=== PATIENT | female | born 1985 | race Caucasian/White ===

== ENCOUNTER 2018-03-22 09:07 | Emergency (ER) | payer BC, SELFPAY ==
[2018-03-22 09:15] VITALS: BP 127/79; PULSE 76; RESP 18; TEMP 36.3; O2SAT 99
--- NOTE | 2018-03-22 09:16 | W.ED.GENAD ---
Discharge Plan Disposition Patient Disposition: HOME Condition: Fair Discharge Details Chief Complaint: Orthopedic Clinical Impression: Hematoma, Contusion of knee, left Primary Care Provider: Erica Golden ED Provider: Junie Luna Home Meds and New Rx's Prescriptions: New ibuprofen 600 mg tablet 600 mg PO QID PRN (Reason: pain) Qty: 30 RF: 0 Continued vit no.[id number] [ Vitamin] 1 EACH tablet 1 tab PO DAILY RF: 0 Discharge Instructions Instructions: Contusion in Adults (ED), Hematoma (ED) Additional Instructions: Encourage rest, ice/heat, elevation, compression with dequan wrap. Tylenol and/or Ibuprofen as needed for discomfort, Ibuprofen will help with swelling. catering coordinator will reach out to you to discuss follow up with primary care. Monitor for redness, warmth, discharge, fevers/chills. If these or other new/worsening symptoms arise please seek care urgently once again. Referrals: Erica Golden PA [Primary Care Provider] - Discharge Data Discharge Date/Time-TO BE ENTERED AT DEPARTURE: 03/22/18 10:14 Medical Decision Making Patient is a 32-year-old female presents today, accompanied by her , with chief complaint of left knee pain. Reports that approximately 9 days ago, while snowboarding, she fell directly onto the anterior aspect of her knee. Reports that since then she has had swelling, ecchymosis and pain anteriorly. Reports the pain is maximal when she is kneeling on the extremity. States this is not changed her gait at all. Has been taking Tylenol as needed for discomfort. Patient is currently breast-feeding. Denies any twisting injury or other injury at the time of the incident. Does not feel that the knee has been giving out. On exam, patient appears comfortable. She does have large amount of ecchymosis generally about the knee, maximal medially. She does have an area of focal swelling, consistent with a hematoma, over the medial aspect of the knee approximately 5 cm in diameter. It is not warm or fluctuant. No evidence of infection. No erythema. Full range of motion although maximal flexion does increase tightness over the swollen area. She does have some discomfort with palpation about the patella. She is able to straight leg raise well. Ligamentously intact with no joint line tenderness. Plan to obtain imaging to look at patella further. Otherwise, plan to treat for hematoma and soft tissue swelling. XR reviewed by myself, no acute abnormality noted. Radiologist agrees, no acute abnormality. Discussed findings with the patient. Advised that this is most consistent with hematoma and contusion. encouraged rest, ice, elevation. Tylenol and/or Motrin as needed for discomfort. Dequan wrap applied to help with compression and swelling. Advised heat may also be of benefit. She was questioning snowboarding tomorrow, advised against this but advised that typical activities around the house were encouraged. We discussed new/worsneing symptoms and when to seek care urgently once again, in particular, advised on signs of infection. She does not have a PCP, I have asked our career and technology education teacher to help facilitate follow up in the next 2 weeks. All of her questions and concerns were addressed, she isin agreement iwth this plan. HPI General Mode of arrival: ambulatory. Date/Time Provider Initiated Documentation: 03/22/18 09:16. Limitations to Documentation: no limitations. Information obtained by: patient and family (accompanied by ). History of Present Illness 32 year old F presents to the emergency department with the chief complaint of anterior left knee pain, with intensity rated at 1. Quality is described as aching, and is localized to the left and lower extremity. Patient reports no radiation. Patient started experiencing this week(s) (1+) and it has been intermittent. Immobilization improves symptom(s), Movement worsens symptoms (maximal with pressure applied to the knee) . Patient notes no other symptoms.. Patient did receive the following treatments prior to arrival, other (Tylenol) Related Data Home Medications Medication Instructions Recorded Confirmed vit no.[id number] 1 tab PO DAILY 11/29/14 [ Vitamin] ibuprofen 600 mg PO QID PRN #30 tab 03/22/18 Previous Rx's Medication Instructions Recorded ibuprofen 600 mg PO QID PRN #30 tab 03/22/18 Allergies Allergy/AdvReac Type Severity Reaction Status Date / Time amoxicillin Allergy Intermediate Unverified 11/29/14 11:19 Penicillins Allergy Intermediate rash Unverified 11/29/14 11:19 Review of Systems Constitutional Reports as per HPI, Denies chills, Denies fever(s), Denies headache(s) and Denies weakness ENT Denies headache(s) Cardiovascular Reports as per HPI Respiratory Reports as per HPI and Denies cough Musculoskeletal Reports as per HPI and Denies tingling Integumentary/Breasts Reports as per HPI, Denies rash and Reports unusual bruising (notes large amount of bruising that has been spreading over left knee) Neurologic Denies headache(s), Denies tingling and Denies weakness [facility] Social History Smoking/Tobacco Use Status: Never Exam Const General: cooperative, healthy appearing, comfortable, no acute distress, well developed and well groomed Nutritional Appearance: average body habitus and well nourished Orientation: alert and awake Resp Effort & Inspection: normal respiratory effort, able to speak in complete sentences and no respiratory distress Cardio Rate: regular rate Rhythm: regular rhythm Skin General skin exam: ecchymosis (left knee, fairly diffuse, maximal medially) Neuro General: alert and awake Cognition: normal cognition Speech: speech normal Gait: normal gait Motor: muscle tone normal throughout Sensory Exam: no sensory deficits noted Extrem Left lower extremity: full ROM, normal capillary refill, hip/thigh Details: normal to inspection and normal ROM; no tenderness and knee Details: tenderness (medially over area of swelling), swelling (soft tissue anteriomedially), normal ROM, knee ligament exam normal (normal) Details: anterior drawer test normal, posterior drawer test normal, valgus stress test normal and varus stress test normal; pain with axial loading, Juni's Test Details: negative medially and laterally and ecchymosis; inspection abnormal (ecchymosis as above with focal area of swelling medially consistent with hematoma), no crepitus, no deformity and no unusual warmth Psych Appearance: grossly normal and well kempt Mental Status: mental status grossly normal Speech and Movement: speech and movement normal
--- NOTE | 2018-03-22 09:25 | DI.RAD_ITS ---
SYMPTOMS/DIAGNOSIS: ANTERIOR PAIN LEFT KNEE: No fracture or joint effusion is seen. The joint spaces are well maintained. IMPRESSION: Negative left knee.
--- NOTE | 2018-03-22 09:31 | ED.GENADUL_ITS ---
Discharge Plan Disposition Patient Disposition: HOME Condition: Fair Discharge Details Chief Complaint: Orthopedic Clinical Impression: Hematoma, Contusion of knee, left Primary Care Provider: Erica Golden ED Provider: Junie Luna Home Meds and New Rx's Prescriptions: New ibuprofen 600 mg tablet 600 mg PO QID PRN (Reason: pain) Qty: 30 RF: 0 Continued vit no.[id number] [ Vitamin] 1 EACH tablet 1 tab PO DAILY RF: 0 Discharge Instructions Instructions: Contusion in Adults (ED), Hematoma (ED) Additional Instructions: Encourage rest, ice/heat, elevation, compression with dequan wrap. Tylenol and/or Ibuprofen as needed for discomfort, Ibuprofen will help with swelling. nursing staffing coordinator will reach out to you to discuss follow up with primary care. Monitor for redness, warmth, discharge, fevers/chills. If these or other new/worsening symptoms arise please seek care urgently once again. Referrals: Erica Golden PA [Primary Care Provider] - Discharge Data Discharge Date/Time-TO BE ENTERED AT DEPARTURE: 03/22/18 10:14 Medical Decision Making Patient is a 32-year-old female presents today, accompanied by her , with chief complaint of left knee pain. Reports that approximately 9 days ago, while snowboarding, she fell directly onto the anterior aspect of her knee. Reports that since then she has had swelling, ecchymosis and pain anteriorly. Reports the pain is maximal when she is kneeling on the extremity. States this is not changed her gait at all. Has been taking Tylenol as needed for discomfort. Patient is currently breast-feeding. Denies any twisting injury or other injury at the time of the incident. Does not feel that the knee has been giving out. On exam, patient appears comfortable. She does have large amount of ecchymosis generally about the knee, maximal medially. She does have an area of focal swelling, consistent with a hematoma, over the medial aspect of the knee approximately 5 cm in diameter. It is not warm or fluctuant. No evidence of infection. No erythema. Full range of motion although maximal flexion does increase tightness over the swollen area. She does have some discomfort with palpation about the patella. She is able to straight leg raise well. Ligamentously intact with no joint line tenderness. Plan to obtain imaging to look at patella further. Otherwise, plan to treat for hematoma and soft tissue swelling. XR reviewed by myself, no acute abnormality noted. Radiologist agrees, no acute abnormality. Discussed findings with the patient. Advised that this is most consistent with hematoma and contusion. encouraged rest, ice, elevation. Tylenol and/or Motrin as needed for discomfort. Dequan wrap applied to help with compression and swelling. Advised heat may also be of benefit. She was questioning snowboarding tomorrow, advised against this but advised that typical activities around the house were encouraged. We discussed new/worsneing symptoms and when to seek care urgently once again, in particular, advised on signs of infection. She does not have a PCP, I have asked our rn urgent care to help facilitate follow up in the next 2 weeks. All of her questions and concerns were addressed, she isin agreement iwth this plan. HPI General Mode of arrival: ambulatory . Date/Time Provider Initiated Documentation: 03/22/18 09:16 . Limitations to Documentation: no limitations . Information obtained by: patient and family (accompanied by ) . History of Present Illness 32 year old F presents to the emergency department with the chief complaint of anterior left knee pain, with intensity rated at 1. Quality is described as aching, and is localized to the left and lower extremity. Patient reports no radiation. Patient started experiencing this week(s) (1+) and it has been intermittent. Immobilization improves symptom(s), Movement worsens symptoms (maximal with pressure applied to the knee) . Patient notes no other symptoms.. Patient did receive the following treatments prior to arrival, other (Tylenol) Related Data Home Medications Medication Instructions Recorded Confirmed vit no.[id number] 1 tab PO DAILY 11/29/14 [ Vitamin] ibuprofen 600 mg PO QID PRN #30 tab 03/22/18 Previous Rx's Medication Instructions Recorded ibuprofen 600 mg PO QID PRN #30 tab 03/22/18 Allergies Allergy/AdvReac Type Severity Reaction Status Date / Time amoxicillin Allergy Intermediate Unverified 11/29/14 11:19 Penicillins Allergy Intermediate rash Unverified 11/29/14 11:19 Review of Systems Constitutional Reports as per HPI, Denies chills, Denies fever(s), Denies headache(s) and Denies weakness ENT Denies headache(s) Cardiovascular Reports as per HPI Respiratory Reports as per HPI and Denies cough Musculoskeletal Reports as per HPI and Denies tingling Integumentary/Breasts Reports as per HPI, Denies rash and Reports unusual bruising (notes large amount of bruising that has been spreading over left knee) Neurologic Denies headache(s), Denies tingling and Denies weakness [facility] Social History Smoking/Tobacco Use Status: Never Exam Const General: cooperative, healthy appearing, comfortable, no acute distress, well developed and well groomed Nutritional Appearance: average body habitus and well nourished Orientation: alert and awake Resp Effort & Inspection: normal respiratory effort, able to speak in complete sentences and no respiratory distress Cardio Rate: regular rate Rhythm: regular rhythm Skin General skin exam: ecchymosis (left knee, fairly diffuse, maximal medially) Neuro General: alert and awake Cognition: normal cognition Speech: speech normal Gait: normal gait Motor: muscle tone normal throughout Sensory Exam: no sensory deficits noted Extrem Left lower extremity: full ROM, normal capillary refill, hip/thigh Details: normal to inspection and normal ROM; no tenderness and knee Details: tenderness (medially over area of swelling), swelling (soft tissue anteriomedially), normal ROM, knee ligament exam normal (normal) Details: anterior drawer test normal, posterior drawer test normal, valgus stress test normal and varus stress test normal; pain with axial loading, Juni's Test Details: negative medially and laterally and ecchymosis; inspection abnormal (ecchymosis as above with focal area of swelling medially consistent with hematoma), no crepitus, no deformity and no unusual warmth Psych Appearance: grossly normal and well kempt Mental Status: mental status grossly normal Speech and Movement: speech and movement normal
--- NOTE | 2018-03-22 10:46 | CMPROGNOTE_ITS ---
Care Management Progress Note 03/22-Junie MERAZ requested assistance with a PCP (Erica Golden) in two weeks for hematoma of left knee. Referral faxed to [facility] this am.
== END 2018-03-22 10:14 | disposition home or self-care (01) ==
PROVIDERS: Emergency Provider Physician Assistant; PCP Physician Assistant
DX: S80.02XA Contusion of left knee, initial encounter (principal); V00.311A Fall from snowboard, initial encounter
CPT/HCPCS: 99283; 73564; 99282

== ENCOUNTER 2019-01-18 08:16 | Outpatient (CLI) | payer MEDICAID, SELFPAY ==
--- NOTE | 2019-01-18 12:00 | DI.US_ITS ---
EXAM: US PELVIS TRANSVAGINAL CLINICAL HISTORY: MENORRHAGIA W/ IRREGULAR CYCLE N92.1 TECHNIQUE: Ultrasound performed using standard protocol. COMPARISON: ABDOMEN ULTRASOUND (P) from 02/12/2012 FINDINGS: The uterus measures 9.2 cm long by 5.1 cm AP x 6.9 cm transverse. The endometrial stripe is within n ormal limits in this premenopausal patient at 1.2 cm. No uterine mass is seen. Incidental note is made of cervical nabothian cysts. The right ovary measures 3.3 x 1.6 x 1.5 cm. There is normal blood flow. No evidence of torsion is present. Small follicular cysts are present. The left ovary measures 3.5 x 2.3 x 2.2 cm. There is normal blood flow. No evidence of torsion is p resent. There are follicular cysts present. There is a 2.3 x 1.9 x 2.2 cm hemorrhagic cyst on the l eft ovary. No free pelvic fluid is identified. There is prominence of the right renal pelvis. This may represent an extrarenal pelvis versus mild h ydronephrosis. IMPRESSION: 1. 2.3 cm hemorrhagic left ovarian cyst. 2. Mild prominence of the right renal pelvis. This may represent an extrarenal pelvis or mild hydro nephrosis. Please correlate clinically.
== END 2019-01-18 08:36 ==
PROVIDERS: PCP Nurse Practitioner Family; Visit Provider Obstetrics & Gynecology
DX: N92.1 Excessive and frequent menstruation with irregular cycle (principal); N83.12 Corpus luteum cyst of left ovary; N83.01 Follicular cyst of right ovary; N83.02 Follicular cyst of left ovary
CPT/HCPCS: 76830; 76856

== ENCOUNTER 2019-04-08 20:26 | Emergency (ER) | payer MEDICAID, SELFPAY ==
[2019-04-08 20:31] VITALS: BP 122/74; PULSE 67; TEMP 36.5; O2SAT 99
--- NOTE | 2019-04-08 20:40 | W.ED.GENAD ---
Discharge Plan Disposition Patient Disposition: HOME Condition: Good Discharge Details Chief Complaint: Orthopedic Clinical Impression: Contusion of knee, left Primary Care Provider: Malika Gonzalez ED Provider: Cj Abbasi Home Meds and New Rx's Prescriptions: New lidocaine [Lidoderm] 1 PATCH patch 1 patch Topical Q24H Qty: 4 RF: 0 Continued ibuprofen 600 mg tablet 600 mg PO QID PRN (Reason: pain) Qty: 30 RF: 0 citalopram [Celexa] 40 mg Tablet 40 mg PO DAILY RF: 0 Discharge Instructions Instructions: Contusion in Adults (ED) Additional Instructions: At this time your x-ray shows no evidence of fracture in your knee, there is a notable amount of swelling. As we discussed please use the Lidoderm patches, 1000 mg of Tylenol every 6 hours and 800 mg of ibuprofen every 6 hours to help with the pain. Please use an Dequan wrap and stay nonweightbearing with your crutches for the next week as your symptoms improve. You can then gradually transition to using your foot and bearing weight as tolerated. If your symptoms do not improve, and you notice continued swelling you may require repeat visit, assessment and potential drainage at that time. If you notice any worsening of your symptoms, or any new symptoms such as redness, warmth at the site, worsening swelling or pain, change in color in your foot past the site of injury in your knee, vomiting, diarrhea, fever, chills, shortness of breath, chest pain, numbness, weakness, or fainting , please return immediately to the emergency department for reevaluation. Please follow up with your primary care provider as soon as possible for reassessment and reevaluation. As always, it was a pleasure participating in your medical care today. Referrals: Malika Gonzalez, F[employer]T [employer]IPPING MACHINE TENDER [Primary Care Provider] - Medical Decision Making This is a pleasant 33-year-old female who presents for left knee pain. Earlier today she was snowboarding and fell and hit her left knee on the ice. She is able to walk and continue to snowboard for the rest of the day however she has had gradual increasing swelling over the left knee with effusion and worsening of pain in conjunction with this. She is only taken Tylenol for the pain. Exam demonstrates notable effusion on the left knee, mild bruising. Review of the patient's prior chart record 1 year ago, as well as the patient's historical references seems to be exactly how her last effusion was. We will get an x-ray to evaluate for acute fracture. We will treat with Lidoderm patch, NSAIDs and IM morphine. At this time there is no clinical evidence of significant infection or neurovascular compromise whatsoever. Bedside ultrasound shows only minimal deep effusion, and it appears to be more diffuse through the soft tissues without large fluid pocket. I do not feel that at this time she is a candidate for effusion drainage. 9:18 PM X-ray results have returned per virtual radiology there is moderate to severe prepatellar subcutaneous inflammatory changes concerning for prepatellar bursitis versus edema. With the clinical context of the injury, I suspect her signs and symptoms more closely reflect posttraumatic edema and not bursitis at this point. However her symptoms may certainly transition into a prepatellar bursitis with time. At this time there is no clinical indication or actual availability to do a bursa or joint drainage. As such we will hold off at this time. Recommend continued NSAIDs, ice, wrap and elevation. Will give crutches for home use. Discussed red flags for which to return, and also discussed with the patient that if her symptoms continue to worsen she may require drainage later when there is a larger fluid collection. I have extensively reviewed the treatment plan and discharge instructions with the patient and their family. I have addressed all patient concerns at this time. The patient and family was made aware of what symptoms to monitor for that would warrant a return to the emergency department. Discussed the plan with the patient and family, they demonstrate verbal understanding and agreement with our assessment and plan at this time. FINDINGS: Bones/joints: No suspicious osseous lytic or blastic lesion. No acute fracture or dislocation. No significant joint effusion. Soft tissues: There is pronounced thickening of the prepatellar subcutaneous soft tissues with curvilinear opacity suspicious for moderate to severe soft tissue edema versus fluid within the prepatellar bursa. IMPRESSION: 1. Moderate to severe prepatellar subcutaneous inflammatory changes as discussed. Posttraumatic edema versus prepatellar bursitis. Correlate clinically. 2. No acute fracture or dislocation. Thank you for allowing us to participate in the care of your patient. Dictated and Authenticated by: Morgan Hauser MD 04/08/2019 9:15 PM Eastern Time ([place] & [place]) HPI General Date/Time Provider Initiated Documentation: 04/08/19 20:28. HPI Narrative: This is a pleasant 33-year-old female with no significant past medical history except for hysterectomy previous contusion and effusion to her left knee 1 year ago, who presents today for evaluation of left knee pain. The patient was snowboarding earlier today when she fell and landed on her left knee. It was a mild injury and she continued to walk throughout the day without significant difficulty. However throughout the day as she continued to walk on it the swelling worsened and her pain worsened. She did take 1 g of Tylenol 6 hours ago, but has taken nothing else. She denies any other complaints at this time. Aside for the pain in her knee she denies any proximal or distal pain. She denies any associated numbness tingling or weakness. She describes the pain is aching and burning in her left knee. No other modifying factors. No other complaints at this time. Related Data Home Medications Medication Instructions Recorded Confirmed ibuprofen 600 mg PO QID PRN #30 tab 03/22/18 04/08/19 citalopram [Celexa] 40 mg PO DAILY 04/08/19 04/08/19 lidocaine [Lidoderm] 1 patch TOPICAL Q24H #4 patch 04/08/19 Previous Rx's Medication Instructions Recorded ibuprofen 600 mg PO QID PRN #30 tab 03/22/18 lidocaine [Lidoderm] 1 patch TOPICAL Q24H #4 patch 04/08/19 Allergies Allergy/AdvReac Type Severity Reaction Status Date / Time amoxicillin Allergy Intermediate Unverified 04/08/19 20:38 Penicillins Allergy Intermediate rash Unverified 04/08/19 20:38 General Stated Complaint: Orthopedic BRO: 4 Review of Systems All systems reviewed & are unremarkable except as noted in HPI and below PFSH Medical History (Updated 04/08/19 @ 21:20 by Cj Abbasi DO) Depression (Chronic) Surgical History (Updated 04/08/19 @ 20:40 by Kristy Castro) History of hysterectomy (Chronic) Social History Smoking/Tobacco Use Status: Never Alcohol Intake: current Alcohol Intake frequency: a few times a month Drug use: Never Substance use type: does not use Do you feel safe in your relationship?: Yes Exam Narrative Exam Narrative: 1.Const: Well-nourished, Well-developed, appearing stated age 2.Eyes: PERRL, no conjunctival injection, and symmetrical lids. 3.ENT: Atraumatic external nose and ears. Moist MM. Neck: Symmetric, trachea midline, No thyromegaly. 4.CVS: +S1/S2, No murmurs or gallops. Peripheral pulses 2+ and equal in all extremities. Brisk capillary refill in all extremities. 5.RESP: Unlabored respiratory effort. Clear to auscultation bilaterally. No wheezes rales or rhonchi 6.GI: Soft, Nontender/Nondistended, No hepatosplenomegaly. No guarding or rebound. 7.MSK: Normocephalic, No cyanosis or clubbing. Left knee: Left knee is notably swollen, significant effusion around the knee with bruising over the anterior medial aspect just medial to the patella. No significant erythema or warmth. No signs of infection. She is able to flex and extend elbow but with mild to moderate pain. Distal evaluation demonstrates intact pulses, brisk capillary refill, no evidence of neurovascular compromise with normal sensation. Unable to adequately perform significant varus and valgus stressing as well as anterior and posterior drawer secondary to pain and effusion. Palpation of the proximal tibia and fibular head are nontender though. Palpation of the distal femur is nontender. It is mainly the medial aspect of the left patella and the effusion. 8.Skin: Warm, Dry. No rashes or lesions. 9.Neuro: personnel analyst II-XII grossly intact. Sensation grossly intact, no focal neurologic deficits. 10.Psych: (AAO) x3. Appropriate mood and affect Course Vital Signs Vital signs: Vital Signs Temperature 36.5 C 04/08/19 20:31 Pulse 67 04/08/19 20:31 Blood Pressure 122/74 04/08/19 20:31 Pulse Oximetry 99 04/08/19 20:31 Temperature 36.5 C 04/08/19 20:31 Temperature Source Temporal Artery Scan 04/08/19 20:31 Pulse 67 04/08/19 20:31 Blood Pressure 122/74 04/08/19 20:31 Pulse Oximetry 99 04/08/19 20:31 Pain Level 5 04/08/19 20:31
[2019-04-08] MEDS: Ketorolac 30 MG/ML VIAL IM (20:47)
[2019-04-08] MEDS: Acetaminophen 500 MG TAB 1000 MG PO (20:48)
[2019-04-08] MEDS: HYDROmorphone 2 MG/ML VIAL 1 MG IM (20:49)
--- NOTE | 2019-04-08 20:55 | DI.RAD_ITS ---
EXAM: XR KNEE LT 3V AP,LAT,AMI INDICATION: Fall,contusion to L knee, notable effusion, r/o fx. COMPARISON: No exams were available for comparison TECHNIQUE: 2D digital imaging was performed. FINDINGS: No acute fracture or dislocation is present. There is no joint effusion. There is marked swelling o f the prepatellar soft tissues. No radiopaque foreign bodies are identified. IMPRESSION: 1. No acute fracture, dislocation or joint effusion. 2. Marked swelling of the prepatellar soft tissues.
[2019-04-08] MEDS: Lidocaine 5% Patch 1 PATCH TP (21:04)
--- NOTE | 2019-04-08 21:14 | DI.VRAD_ITS ---
PROCEDURE INFORMATION: Exam: XR Left Knee Exam date and time: 04/08/2019 8:56 PM Age: 33 years old Clinical indication: Other: Fall, contusion to lt knee, notable effusion, R/O FX TECHNIQUE: Imaging protocol: XR Left knee. Views: 3 views. COMPARISON: CR XR knee LT 4V AP,lat,liam,pat 03/22/2018 9:31 AM FINDINGS: Bones/joints: No suspicious osseous lytic or blastic lesion. No acute fracture or dislocation. No significant joint effusion. Soft tissues: There is pronounced thickening of the prepatellar subcutaneous soft tissues with curvilinear opacity suspicious for moderate to severe soft tissue edema versus fluid within the prepatellar bursa. IMPRESSION: 1. Moderate to severe prepatellar subcutaneous inflammatory changes as discussed. Posttraumatic edema versus prepatellar bursitis. Correlate clinically. 2. No acute fracture or dislocation. Dictated and Authenticated by: Morgan Hauser MD. Ordering:HANNY Corona MD
== END 2019-04-08 21:30 | disposition home or self-care (01) ==
PROVIDERS: Emergency Provider Student in an Organized Health Care Education/Training Program; PCP Nurse Practitioner Family
DX: S89.92XA Unspecified injury of left lower leg, initial encounter (principal); S80.02XA Contusion of left knee, initial encounter; M25.462 Effusion, left knee; V00.311A Fall from snowboard, initial encounter; Y93.23 Activity, snow (alpine) (downhill) skiing, snowboarding, sledding, tobogganing and snow tubing
CPT/HCPCS: 73562; 96372; 99284; E0114; J1885

== ENCOUNTER 2019-05-24 11:25 | Outpatient (CLI) | payer MEDICAID, SELFPAY ==
--- NOTE | 2019-05-24 08:15 | DI.RAD_ITS ---
EXAM: XR KNEES MERCHANT ONLY INDICATION: Pain. COMPARISON: XR KNEE LT 3V AP,LAT,AMI from 04/08/2019 TECHNIQUE: 2D digital imaging was performed. FINDINGS: There is normal alignment of the patella. There does appear to be swelling in the prepatellar soft t issues. DATA REPOSITORY: RADIATION DOSE DELIVERED:
== END 2019-05-24 11:45 ==
PROVIDERS: PCP Nurse Practitioner; Visit Provider Student in an Organized Health Care Education/Training Program
DX: M25.561 Pain in right knee (principal); M25.562 Pain in left knee
CPT/HCPCS: 73565

== ENCOUNTER 2020-03-26 03:01 | Outpatient (CLI) | payer MEDICAID, SELFPAY ==
[2020-03-26 14:30] LABS: HGB 13.1 g/dL (11.2-15.7); MCHC 33.6 % (32.0-36.0); MCV 86.3 fL (80-95); MPV 10.5 fL (8.0-11.0); Platelet Count 254 10^3/uL (130-400); RBC 4.52 10^6/uL (3.93-5.22); RDW 12.6 % (11.7-14.6); RDW-SD 39.8 fL; WBC 8.09 10^3/uL (4.4-10.8)
[2020-03-26 14:44] LABS: Hemoglobin A1C 5.5 % (<5.7)
[2020-03-26 15:13] LABS: Calculated LDL 187 mg/dL (<100); Cholesterol 264 mg/dL (<200); HDL Cholesterol 52 mg/dL (40-60); TSH 5.81 uIU/mL (0.36-3.74); Triglyceride 129 mg/dL (<150)
[2020-03-26 15:25] LABS: Vitamin D 25 Total 14.6 ng/ml (30-100)
== END 2020-03-26 03:21 ==
PROVIDERS: PCP Nurse Practitioner; Visit Provider Nurse Practitioner
DX: R53.83 Other fatigue (principal); F41.9 Anxiety disorder, unspecified; F33.0 Major depressive disorder, recurrent, mild; Z13.6 Encounter for screening for cardiovascular disorders; Z13.1 Encounter for screening for diabetes mellitus
CPT/HCPCS: 36415; 80061; 82306; 85027; 83036; 84443

== ENCOUNTER 2020-05-29 03:35 | Outpatient (CLI) | payer MEDICAID, SELFPAY ==
[2020-05-29 12:47] LABS: TSH (W/Ref FT4) 4.68 uIU/mL (0.36-3.74)
[2020-05-29 13:43] LABS: FREE T4 0.72 ng/dL (0.76-1.46)
[2020-05-31 15:30] LABS: 1,25-Dihydroxyvitamin D 45 pg/mL (18-78)
== END 2020-05-29 03:36 | disposition home or self-care (01) ==
LOC: LOS 03:36
PROVIDERS: PCP Nurse Practitioner; Visit Provider Nurse Practitioner
DX: E55.9 Vitamin D deficiency, unspecified (principal); R53.83 Other fatigue
CPT/HCPCS: 36415; 82652; 84439; 84443

== ENCOUNTER 2021-03-07 03:25 | Outpatient (CLI) | payer MEDICAID, SELFPAY ==
[2021-03-07 15:59] LABS: TSH 5.69 uIU/mL (0.36-3.74)
== END 2021-03-07 03:26 | disposition home or self-care (01) ==
LOC: LBO 03:25
PROVIDERS: PCP Nurse Practitioner; Visit Provider Nurse Practitioner
DX: E03.9 Hypothyroidism, unspecified (principal)
CPT/HCPCS: 36415; 84443

== ENCOUNTER 2021-05-15 03:50 | Outpatient (CLI) | payer MEDICAID, SELFPAY ==
[2021-05-15 16:17] LABS: TSH 2.05 uIU/mL (0.36-3.74)
== END 2021-05-15 03:51 | disposition home or self-care (01) ==
LOC: LBO 03:50
PROVIDERS: PCP Nurse Practitioner; Visit Provider Nurse Practitioner
DX: E03.9 Hypothyroidism, unspecified (principal)
CPT/HCPCS: 36415; 84443

== ENCOUNTER → 2021-08-19 02:12 | Outpatient (CLI) | payer MEDICAID, SELFPAY ==
--- NOTE | 2021-08-19 07:45 | DI.MRI_ITS ---
Exam(s) MR LOWER JOINT LT WO EXAM: MR LOWER JOINT LT WO CLINICAL HISTORY: left knee pain,effusion,chondromalacia,m25.462,m22.42. TECHNIQUE: Multiplanar multisequence MRI was performed. COMPARISON: CR,XR XR KNEE LT 3V AP,LAT,AMI from 04/08/2019 CR XR KNEES MERCHANT ONLY from 05/24/2019 FINDINGS: BONES: There is no fracture or contusion pattern. JOINTS: Patellar cartilage shows minimal high signal in the lateral facet but no significant thinning or focal defect. Cartilage over the femoral condyles and tibial plateaus appear intact.. A small j oint effusion is present. TENDONS: Extensor mechanism: Unremarkable. Medial retinaculum: Unremarkable. Lateral retinaculum: Unremarkable. Popliteus: Unremarkable. MUSCLES: Unremarkable. MENISCI: The medial meniscus is unremarkable. The lateral meniscus is unremarkable. SOFT TISSUES: Unremarkable. LIGAMENTS: Anterior Cruciate: Unremarkable. Posterior Cruciate: Unremarkable. Medial Collateral:Unremarkable. Lateral Collateral: Unremarkable. IMPRESSION: Mild chondromalacia lateral patella facet. No ligament or meniscal tear. Small joint effusion. DATA REPOSITORY:
== END ==
PROVIDERS: PCP Nurse Practitioner; Visit Provider Nurse Practitioner
DX: M25.562 Pain in left knee (principal); M25.462 Effusion, left knee; M22.42 Chondromalacia patellae, left knee
CPT/HCPCS: 73721

== ENCOUNTER 2022-01-10 08:49 | Emergency (ER) | payer BC, MEDICAID, SELFPAY ==
[2022-01-10 08:58] VITALS: BP 131/105; PULSE 95; RESP 25; TEMP 36.5; O2SAT 100
[2022-01-10 09:08] VITALS: RESP 18
--- NOTE | 2022-01-10 09:30 | NUR.NOTE ---
Nursing Note: Acuity changed due to mistake in entry.
[2022-01-10 09:39] LABS: Source Nasal/Nares
--- NOTE | 2022-01-10 09:41 | W.ED.GENAD ---
Discharge Plan Disposition Patient Disposition: HOME Condition: Stable Discharge Details Clinical Impression: Anxiety, Depression Primary Care Provider: Evelyn Hatch ED Provider: Dina Loomis Home Meds and New Rx's Prescriptions: Continued cholecalciferol (vitamin D3) 1,250 mcg (50,000 unit) tablet 1,250 mcg PO QWEEK Qty: 8 0RF omeprazole magnesium 20 mg capsule,delayed release(DR/EC) 20 mg PO DAILY Qty: 30 2RF Rx Instructions: take one tablet daily for 3 weeks and then as needed escitalopram oxalate [Lexapro] 20 mg tablet 20 mg PO DAILY Qty: 90 4RF levothyroxine 75 mcg tablet 75 mcg PO DAILY Qty: 90 4RF Discharge Instructions Instructions: Depression (ED), Anxiety (ED) Additional Instructions: Take the Ativan every 6-8 hours as needed and directed for feelings of anxiety or panic attack. Follow up with [facility] as directed. You can contact them at [phone] with any questions or concerns. Follow-up with your primary care doctor in 1 week. Return to the emergency department with any worsening or new concerning symptoms. Discharge Data Discharge Physician: Dina Loomis Medical Decision Making 0900 -- 36yo F w/ a h/o depression presents to the ED w/ a c/o feeling anxious and depressed over the past 2 months, most specifically secondary to issues that she has been having with a staff member at work. She states she has thoughts of suicide and today thought about driving her car into a wall but states she did not think she would act upon it. No previous history of suicide attempt, alcohol or drug use. Patient is medically cleared per smart medical clearance form. Patient is tearful but appears nontoxic. Her blood pressure and heart rate are mildly elevated but we will continue to monitor. We will call mental health for evaluation. 1050 --patient evaluated by mental health and cleared for discharge to home with a safety plan. Patient's at bedside and he will be taking her home. A dose of Ativan was given for her anxiety here. She was given 4 tabs of Ativan 0.5 mg to go as needed for feelings of anxiety or panic attack per patient request. Advised to follow-up with [facility]. Advised to call her PCP for follow-up within the next week for reevaluation and discussion regarding her Lexapro and whether she should continue on this medication or start a different antidepressant or medication for anxiety. Usual and customary return precautions given prior to discharge. Medical Records Medical records reviewed: Yes I reviewed the patient's medical records. HPI General Mode of arrival: ambulatory. Date/Time Provider Initiated Documentation: 01/10/22 09:10. Limitations to Documentation: no limitations. Information obtained by: patient. HPI Narrative: Patient is a 36-year-old female with a history of anxiety, depression and hypothyroidism who presents with feelings of anxiety and depression for the past 2 months. 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 She states she does feel safe at home and has support from her 4 children and . She states she has not recently of what is her point in life . She states she has also thought about driving her car into a wall. She denies any previous history of suicide attempt. She states she occasionally drinks alcohol but denies any alcohol abuse or drug use. She states she has been eating more than usual and feels that this is secondary to her depression. She denies any significant change in her sleep pattern. She denies any fever, headache, chest pain, shortness of breath, abdominal pain, vomiting or diarrhea. Related Data Home Medications Medication Instructions Recorded Confirmed cholecalciferol (vitamin D3) 1,250 1,250 mcg PO QWEEK #8 tabs 03/30/20 01/10/22 mcg (50,000 unit) tablet omeprazole magnesium 20 mg 20 mg PO DAILY #30 caps 01/30/21 01/10/22 capsule,delayed release escitalopram oxalate 20 mg tablet 20 mg PO DAILY #90 tabs 03/12/21 01/10/22 (Lexapro) levothyroxine 75 mcg tablet 75 mcg PO DAILY #90 tabs 08/20/21 01/10/22 Previous Rx's Medication Instructions Recorded cholecalciferol (vitamin D3) 1,250 1,250 mcg PO QWEEK #8 tabs 03/30/20 mcg (50,000 unit) tablet omeprazole magnesium 20 mg 20 mg PO DAILY #30 caps 01/30/21 capsule,delayed release escitalopram oxalate 20 mg tablet 20 mg PO DAILY #90 tabs 03/12/21 (Lexapro) levothyroxine 75 mcg tablet 75 mcg PO DAILY #90 tabs 08/20/21 Allergies Allergy/AdvReac Type Severity Reaction Status Date / Time amoxicillin Allergy Intermediate Verified 01/10/22 09:08 Penicillins Allergy Intermediate rash Verified 01/10/22 09:08 General Stated Complaint: Anxiety BRO: 2 Review of Systems All systems reviewed & are unremarkable except as noted in HPI and below Constitutional Constitutional: Reports as per HPI, Denies chills and Denies fever(s) Eyes Eyes: Denies blurry vision ENT Ears, Nose, Mouth, and Throat: Denies dizziness, Denies sore throat and Denies throat swelling Cardiovascular Cardiovascular: Denies chest pain and Denies dyspnea Respiratory Respiratory: Denies cough and Denies dyspnea Gastrointestinal Gastrointestinal: Denies abdominal pain, Denies diarrhea and Denies vomiting Genitourinary Genitourinary: Denies hematuria and Denies dysuria Musculoskeletal Musculoskeletal: Denies back pain and Denies numbness Integumentary/Breasts Skin/Breast: Denies lesions and Denies rash Neurologic Neurologic: Denies dizziness, Denies localized weakness and Denies numbness Allergic/Immunologic Allergic/Immunologic: Denies throat swelling PFSH All Active Problems (Updated 01/10/22 @ 10:54 by Dina Loomis DO) Anxiety (Chronic) Depression (Chronic) Morbid obesity (Acute) Hernia (Chronic) GERD (gastroesophageal reflux disease) (Chronic) Vitamin D deficiency (Acute) Hypothyroid (Chronic) Anxiety (Chronic) Depression (Chronic) Medical History (Updated 01/10/22 @ 10:54 by Dina Loomis DO) Chondromalacia patellae, 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 Brother Alcohol abuse Daughter No problems noted. Daughter No problems noted. Maternal Grandfather , age 83 No problems noted. Paternal Grandfather No problems noted. Maternal Grandmother , age 74 No problems noted. Paternal Grandmother No problems noted. Social History (Updated 05/15/21 @ 19:11 by Jillian Soto) Smoking/Tobacco Use Status: Never Second Hand Exposure: No Smoking risk assessment performed?: Yes Alcohol Intake: current Alcohol Intake frequency: a few times a month Alcohol type: beer Drug use: Never Substance use type: does not use Caregiver/Support person: No Household members: spouse and children Housing: house Communication Needs: None Do you need help understanding health information?: Never Pets and animals: Yes Pets and animals: dog(s) and farm animals Sexually active: Yes Do you think of yourself as: straight/heterosexual Current gender identity: female What is your relationship status?: How often do you talk on the phone with friends or family?: three or more times per week How often do you get together with friends or relatives?: once per week How often do you attend druze or amish services?: 1-3 times per year Do you belong to any clubs or organized social groups?: no Panel score (0-1 are the most socially isolated patients): 2 Sharon/Judaism: No preference Seatbelt use: always Drive intox or ride w/intox 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 Do you feel safe at home: Yes Do you feel safe in your relationship?: Yes Exam Const General: cooperative, healthy appearing and no acute distress Orientation: alert, awake and oriented x3 HENMT Head: normal to inspection Mouth: oral mucosae normal Eyes General: appearance normal, both eyes and all related structures Neck Neck: normal visual inspection Resp Effort & Inspection: normal respiratory effort and able to speak in complete sentences Auscultation: clear to auscultation bilaterally Cardio Rate: regular rate Rhythm: regular rhythm GI Inspection: obesity Palpation: soft, not firm, no guarding, no masses, not rigid and nontender Auscultation: hypoactive bowel sounds Skin General skin exam: no rashes or lesions noted Neuro General: patient alert, patient awake and patient oriented x3 Motor: muscle tone normal throughout Extrem General: normal to inspection and full ROM Psych Appearance: grossly normal Affect: normal affect Course Vital Signs Vital signs: Vital Signs Temperature 97.7 F 01/10/22 08:58 Pulse 95 H 01/10/22 08:58 Respiratory Rate 25 H 01/10/22 08:58 Blood Pressure 131/105 H 01/10/22 08:58 Pulse Oximetry 100 01/10/22 08:58 Temperature 97.7 F 01/10/22 08:58 Temperature Source Skin 01/10/22 08:58 Pulse 95 H 01/10/22 08:58 Respiratory Rate 18 01/10/22 09:08 Respiratory Effort 01/10/22 09:08 Respiratory Depth Normal 01/10/22 09:08 Respiratory Pattern Normal 01/10/22 09:08 Blood Pressure 131/105 H 01/10/22 08:58 Blood Pressure Position Supine 01/10/22 08:58 Pulse Oximetry 100 01/10/22 08:58 Oxygen Delivery Method Room Air 01/10/22 08:58 Oxygen Flow Rate 0 01/10/22 08:58 Comment 01/10/22 08:58 Lab/Test Results Lab/Test Results: Laboratory Tests Range/Units 01/10/22 09:36 COVID-19 Source Nasal/Nares
[2022-01-10 10:11] LABS: COVID-19 PCR Negative (Negative)
--- NOTE | 2022-01-10 10:59 | PDOC.MHCN_ITS ---
Date of service: 01/10/22 Time of Service: 10:45 PHQ-9 Over the last 2 weeks, how often have you been bothered by any of the following problems? 1. Little interest or pleasure in doing things: nearly every day 2. Feeling down, depressed, or hopeless: nearly every day 3. Trouble falling or staying asleep, or sleeping too much: not at all 4. Feeling tired or having little energy: nearly every day 5. Poor appetite or overeating: nearly every day 6. Feeling bad about yourself - or that you are a failure or have let yourself and your family down: more than half the days 7. Trouble concentrating on things, such as reading the newspaper or watching television: more than half the days 8. Moving or speaking so slowly that other people could have noticed? - Or the opposite - being so fidgety or restless that you have been moving around a lot more than usual: not at all 9. Thoughts that you would be better off or of hurting yourself in some way: several days Total score: 17 If you checked off any problems, how difficult have these problems made it for you to do your work, take care of things at home, or get along with other people?: extremely difficult PHQ-9 Results: Positive Source: Developed by Drs. Enrique Richey, Yanira Villagomez, Aristeo Gallegos and colleagues, with an educational charles from [employer]. Suicide Severity Rate CSSRS Have you wished you were or wished you could go to sleep and not wake up?: Yes Have you actually had any thoughts of killing yourself?: Yes CSSRS2 Have you been thinking about how you might do this?: No Have you had these thoughts and had some intention of acting on them?: No Have you started to work out or worked out the details of how to kill yourself? Do you intend to carry out this plan?: No CSSRS3 Have you ever done anything, started to do anything or prepared to do anything to end your life?: No CSSRS4 Was this within the past three months?: No Screening Score Total Score: 4 Screening: Positive Mental Health Emergency Note Release HS release signed:: Yes Reason for Visit Omaira presents to [facility] due to her recent panic attacks. Omaira is seeking mental health services. In the last 2 weeks has the pt presented for ES prior to today?: Unknown Client Information Client is: New Well Housed: Yes Non Suicidal Self Injury Current: No History: No Safety Risk/Harm to Self or Others Current Ideation to Harm Self or Others: No Risk: Does risk to harm exist?: No Risk: N/A Duty to warn indicated: No Asssessment/Mental Status Appearance: Unremarkable Attitude: Cooperative Behavior: Unremarkable Speech: Normal Affect: Cogruent with mood Mood: Sad, Stressed, Depressed and Anxious Thought process: Unremarkable Hallucinations: No evidence Delusions: No evidence Attention: Unremarkable Perception: Not impaired Orientation: Fully orientated Memory: Intact Insight: Good Judgement: Good Neurovegetative Symptoms Sleep: No change (Omaira reports she is either sleeping too much or not enough.) Appetitie: Increase (Omaira reports she has been overeating. ) Interests: Decrease Energy: Decrease Libido: Not applicable Substance Use: Do you use nicotine?: No Have you used substances in the last 7 days?: No Additional Issues: Assaultive/Threatening Behavior: No Medical Concerns: No Client engaged in active self harm w/weapon: No Threatening to run away: No Child reported abuse/neglect: No Voluntarily presenting for services: Yes Domestic violence is a concern: No Extreme Psychosis or extreme behavior is present: No Impression Omaira was seen via Zoom while at the [facility] ED. Omaira presents with panic attacks and reports she has been experiencing them since the beginning of November. Omaira reports this is not her first time having panic attacks but they have been more consistent and worse than they were a few years prior. Omaira is previously diagnosed with anxiety and depression which is evident in her responses to the screening tools. Omaira reports several current life stressors in addition to some additional work stress. 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 Omaira reports she feels sad and stressed but she has a supportive , family, and friend group. Omaira has an upcoming appointment with a local PCP and she is hoping to start therapy at [facility]. This staff writer will put in a therapy referral for Omaira. Omaira reports she feels safe at home and she is not actively thinking about harming herself, but she does know she is struggling and needs additional support. Omaira is hopeful therapy will be beneficial. Omaira and this staff writer created a safety plan just so she would have it as a resource, as a part of her safety plan she will complete daily check in calls with emergency services next week 01/13-01/17 as she reports work days are the hardest for her. Resources Reosurces reviewed and given:: [id number] and [facility] Plan/Disposition Recommended Disposition: PCP/Office visit (Omaira has an upcoming appointment with a new PCP.) and [facility] Services (A referral for therapy was put in at [facility] and she will complete check in calls.) [facility] Services: Therapy and Other. Plan: Omaira will discharge home on a safety plan. Omaira reports she feels safe at home and she is looking forward to starting therapy. This clinician will put a therapy referral in for Omaira and get her seen as soon as possible. Person reported agreement to plan: Yes Reports/communication Outcome discussed with: ED/Personnel
[2022-01-10] MEDS: LORazepam 0.5 MG TAB PO (11:16)
[2022-01-10] MEDS: LORazepam 0.5 MG TAB 2 MG PO (11:16)
== END 2022-01-10 11:16 | disposition home or self-care (01) ==
PROVIDERS: Emergency Provider Physician Assistant; PCP Nurse Practitioner
DX: F41.9 Anxiety disorder, unspecified (principal); F32.A Depression, unspecified; R45.851 Suicidal ideations
CPT/HCPCS: 87635; 99285; 99283

== ENCOUNTER 2022-02-04 20:57 | Emergency (ER) | payer BC, MEDICAID, SELFPAY ==
[2022-02-04 21:00] VITALS: BP 145/72; PULSE 83; RESP 18; TEMP 37.1; O2SAT 98
--- NOTE | 2022-02-04 21:15 | DI.CT_ITS ---
Exam(s) CT ABDOMEN PELVIS W EXAM: CT ABDOMEN PELVIS W CLINICAL HISTORY: left lower quadrant and flank pain. TECHNIQUE: Imaging Protocol: Axial computed tomography images with coronal and sagittal reformatted images were created and reviewed CONTRAST MATERIAL: Intravenous: Omnipaque 100cc Oral: None COMPARISON: No exams were available for comparison FINDINGS: VISUALIZED LUNG BASES: No nodules nor pleural effusions evident. ABDOMEN: There is no ascites. LIVER: There are no focal hepatic lesions evident . GALLBLADDER/BILIARY: Gallbladder not seen and presumed to be surgically absent although there are no clips in the gallbladder fossa evident. CBD is not dilated. PANCREAS: No evidence of pancreatic mass nor dilatation of the pancreatic duct. SPLEEN: Spleen is not enlarged. No obvious intrasplenic lesions. Splenic and portal veins are paten t. ADRENALS: There are no significant adrenal masses. KIDNEYS:No cysts evident. No solid renal masses. No calculi. There is prominence of the right renal pelvis and right renal infundibulum I. The right ureter below the UPJ is not dilated. Similar findi ngs not seen on the opposite-left side.. ABDOMINAL AORTA: Abdominal aorta is not enlarged. LYMPH NODES:There is no retroperitoneal nor paraaortic adenopathy. ABDOMINAL WALL: There is a fat containing right paraumbilical hernia. No bowel loops within the karen ia sac at this time. No bowel obstruction. GI: There is no evidence of bowel obstruction, free air, nor abscess. PELVIS: GI: No evidence of appendicitis.No evidence of sigmoid diverticulitis. LYMPH NODES: There is no intrapelvic nor inguinal adenopathy. REPRODUCTIVE: Uterus surgically absent. No abnormal adnexal masses. URINARY BLADDER: No calculi nor obvious masses evident OSSEOUS: Sclerotic density in the left femoral head-neck junction is probably benign bone island. No lytic osseous lesions evident. IMPRESSION: 1. Uterus is surgically absent. No significant abnormal adnexal findings and no free fluid in the pe lvis. 2. There is mild right-sided hydronephrosis down to the UPJ suggesting UPJ level obstruction. The ri ght ureter below this level exhibits normal diameter. Similar findings not seen on the opposite-left side. There are no calculi or other focal renal findings. No perinephric fluid. 3. There is a fat containing anterior abdominal wall right-side periumbilical hernia. This does not contain bowel loops and there is no bowel obstruction evident. 4. Gallbladder is not seen and presumed to be surgically absent despite absence of clips in the gallb ladder fossa. The CBD is not dilated. RADIATION DOSE DELIVERED: 1,404.18mGy.cm Total DLP DATA REPOSITORY: All CT scans at this facility are submitted to the National Radiology Data Registry (NRDR) Dose Index Registry (DIR) with the [employer] (A[employer]). RADIATION OPTIMIZATION: All CT scans at this facility use at least one of these dose optimization te chniques: automated exposure control; mA and/or kV adjustment per patient size (includes targeted exa ms where dose is matched to clinical indication); or iterative reconstruction.
[2022-02-04 21:17] LABS: Bilirubin Negative (Negative); Blood Negative (Negative); Clarity Sl Cloudy (Clear); Glucose Negative (Negative); Ketones Negative (Negative); Leukocyte Esterase Negative (Negative); Nitrite Negative (Negative); Specific Gravity >= 1.030 (1.005-1.025); Urobilinogen 0.2 EU/dL (Up TO 0.2)
[2022-02-04 21:42] LABS: Abs Immature Grans 0.02 10^3/uL (0.0-0.06); Absolute Basophil Count 0.03 10^3/uL (0.0-0.2); Absolute Eosinophil Count 0.18 10^3/uL (0.0-0.7); Absolute Monocyte Count 0.81 10^3/uL (0.1-0.8); Absolute Neutrophil Count 7.37 10^3/uL (1.2-6.7); Basophils % 0.3; Eosinophils % 1.6; HCT 39.8 % (36.0-46.0); HGB 13.4 g/dL (11.2-15.7); Immature Grans % 0.2; Lymphocytes % 26.9; MCH 29.1 pg (27.0-33.0); MCHC 33.7 % (32.0-36.0); MCV 86 fL (80-95); MPV 10.8 fL (8.0-11.0); Platelet Count 236 10^3/uL (130-400); RBC 4.61 10^6/uL (3.93-5.22); RDW 12.2 % (11.7-14.6); RDW-SD 38.7 fL; WBC 11.51 10^3/uL (4.4-10.8)
[2022-02-04] MEDS: diazePAM 10 MG/2 ML SYR 2.5 MG IVP (21:43)
[2022-02-04 21:57] LABS: ALT 26 U/L (14-59); AST 12 U/L (15-37); Albumin 3.6 g/dL (3.4-5.0); Alkaline Phosphatase 70 U/L (46-116); Anion Gap 6.8 mmol/L (3-11); BUN 16 mg/dL (7-18); Bilirubin, Total 0.2 mg/dL (0.2-1.0); CO2 30.2 mmol/L (21.0-32.0); CREATININE 0.7 mg/dL (0.55-1.02); Calcium 9.3 mg/dL (8.5-10.1); Chloride 101 mmol/L (98-107); Estimated GFR 113.46 (mL/min/1.73m2); Glucose 98 mg/dL (74-106); Lipase 73 U/L (73-393); Potassium 3.6 mmol/L (3.5-5.1); Sodium 138 mmol/L (136-145)
[2022-02-04] MEDS: Omnipaque 350 MG/ML 100 ML BTL IJ (22:01)
[2022-02-04] MEDS: Normal Saline - Diluent 50 ML VIAL IJ (22:02)
[2022-02-04] MEDS: Normal Saline Flush 10 ML SYR IVP (22:03)
--- NOTE | 2022-02-04 22:28 | DI.VRAD_ITS ---
PROCEDURE INFORMATION: Exam: CT Abdomen And Pelvis With Contrast Exam date and time: 02/04/2022 9:59 PM Age: 36 years old Clinical indication: Abdominal pain and other: Flank; Localized; Left lower quadrant (llq); Prior surgery; Surgery date: 6+ months; Surgery type: Hysterectomy, cholectstectomy; Patient HX: Left lower quadrant and flank pain TECHNIQUE: Imaging protocol: Computed tomography of the abdomen and pelvis with contrast. Radiation optimization: All CT scans at this facility use at least one of these dose optimization techniques: automated exposure control; mA and/or kV adjustment per patient size (includes targeted exams where dose is matched to clinical indication); or iterative reconstruction. Contrast material: OMNIPAQUE 350; Contrast volume: 100 ml; Contrast route: INTRAVENOUS (IV); COMPARISON: US PELVIS TRANSVAGINAL 01/18/2019 12:03 PM FINDINGS: Lungs: Lung bases clear. Liver: Normal appearing liver. Gallbladder and bile ducts: Prior cholecystectomy. No biliary dilatation. Pancreas: Normal appearing pancreas. Spleen: Normal appearing spleen. Adrenal glands: Normal appearing adrenal glands. Kidneys and ureters: Mild right-sided hydronephrosis without ureterectasis. No obstructing stones seen at the ureteropelvic junction. Ureters partially obscured. No suspicious calcifications along the expected ureteral courses. Stomach and bowel: No oral contrast. Stomach partially distended with fluid. No small bowel dilatation to suggest obstruction. Normal-appearing cecum and ascending colon. Transverse colon moderately distended with gas. Downstream colon relatively well evacuated and collapsed. No evidence of diverticulitis or colitis. Appendix: Normal appendix. Intraperitoneal space: No gross ascites or free air. Vasculature: Normal caliber abdominal aorta. Lymph nodes: No pathologically enlarged mesenteric, retroperitoneal, or pelvic sidewall lymph nodes. Urinary bladder: Urinary bladder partially collapsed but grossly unremarkable, as seen. Reproductive: Prior hysterectomy. Normal-appearing left ovary. Right ovary partially obscured but normal in size. Two adjacent peripherally enhancing corpora lutea on the right measuring 2.0 cm by 1.0 cm laterally and 1.3 cm x 1.0 cm medially on image 56 of coronal series 6. Bones/joints: No acute fracture seen among the bones of the abdomen or pelvis. Soft tissues: Small fat containing ventral hernia at the umbilicus. Other findings: No oral contrast. IMPRESSION: 1. No acute bowel pathology demonstrated. 2. Right ovary partially obscured. Two adjacent peripherally enhancing corpora lutea on the right measuring 2.0 cm x 1.0 cm laterally and 1.3 cm x 1.0 cm medially on the coronal series. No gross free fluid. 3. Mild right-sided hydronephrosis without ureterectasis suggesting obstructive physiology at the ureteropelvic junction. No obstructing stone is seen. Dictated and Authenticated by: Edgar Mcintosh MD. Ordering:CAROL Hays MD
[2022-02-04] MEDS: HYDROmorphone 2 MG/ML SYR 1 MG IVP (22:33)
--- NOTE | 2022-02-04 23:05 | W.ED.GENAD ---
Discharge Plan Disposition Patient Disposition: Home Condition: Stable Discharge Details Clinical Impression: Back pain, Hydronephrosis Primary Care Provider: Liat Howard ED Provider: Lis Kinney Home Meds and New Rx's Prescriptions: New cyclobenzaprine 10 mg tablet 10 mg PO TID PRNQty: 10 0RF oxycodone 5 mg capsule 5 mg PO Q8H PRNQty: 7 0RF dexamethasone 4 mg tablet 4 mg PO DAILY Qty: 3 0RF Continued cholecalciferol (vitamin D3) 1,250 mcg (50,000 unit) tablet 1,250 mcg PO QWEEK Qty: 8 0RF omeprazole magnesium 20 mg capsule,delayed release(DR/EC) 20 mg PO DAILY Qty: 30 2RF Rx Instructions: take one tablet daily for 3 weeks and then as needed escitalopram oxalate [Lexapro] 20 mg tablet 20 mg PO DAILY Qty: 90 4RF phentermine 15 mg capsule 15 mg PO DAILY Qty: 30 0RF Rx Instructions: Take before or 2 hours after breakfast lorazepam [Ativan] 0.5 mg tablet 0.5 mg PO DAILY PRN (Reason: anxiety) Qty: 4 0RF sertraline 25 mg tablet 25 mg PO DAILY Qty: 30 0RF levothyroxine 75 mcg tablet 75 mcg PO DAILY Qty: 90 4RF Discharge Instructions Additional Instructions: Please take Decadron daily, starting tomorrow Take the oxycodone sparingly, this medication is addictive, you should not drive for 8 hours after taking this medication Take the Flexeril, stagger and do not take it at the same time as the oxycodone as it will make you very drowsy Return earlier should you have strength or sensation change, fever, chills, or with any new or worsening complaints I recommend following up with urologist regarding your right kidney, you have mild fluid on it, and listing urologist below Please follow-up with your doctor regarding your back pain Stand Alone Forms: Work Release Referrals: Adal Gonzalez MD [ [facility] STAFF PHYSICIAN] - 1 week Liat Howard NP [Primary Care Provider] - 1 day Discharge Data Discharge Date/Time-TO BE ENTERED AT DEPARTURE: 02/04/22 23:20 Medical Decision Making Patient with hydronephrosis which is mild on the right, incidental finding, per radiology limitation of my review no tenderness overlying this area and urinalysis within normal limits, interesting as pain is on the left without any reproducible right flank tenderness No evidence of secondary urinary tract infection Feeling marked improvement after IV analgesia Discharged home on small amount of opiate analgesia, I suspect this is musculoskeletal in nature, patient will need close outpatient reassessment, recommend reevaluation within the next 48 to 72 hours Risk of addiction reviewed Remains neurovascularly intact throughout encounter and ambulatory with steady gait at time of discharge home Small amount of steroids applied Will refer to urology Suspect back pain, musculoskeletal Will discharge on prednisone, Flexeril, and oxycodone, risk of addiction reviewed Return precautions discussed and patient expressed understanding Medical Records Medical records reviewed: Yes I reviewed the patient's medical records. Lab Data Lab results reviewed: Yes I reviewed the patient's lab results. Sign Out No HPI General Date/Time Provider Initiated Documentation: 02/04/22 21:13. HPI Narrative: Patient presents with left flank pain with radiation to her pelvis. Denies any urinary complaints. Denies any strength or sensation changes to her extremities. Denies any fever or chills. Denies chance of . States history of back pain but that this is different. She denies specific injury but has been moving throughout the course of the week. Denies any groin paresthesias. Pain is exacerbated with movement. Describes the pain as sharp. Related Data Home Medications Medication Instructions Recorded Confirmed cholecalciferol (vitamin D3) 1,250 1,250 mcg PO QWEEK #8 tabs 03/30/20 01/16/22 mcg (50,000 unit) tablet omeprazole magnesium 20 mg 20 mg PO DAILY #30 caps 01/30/21 01/16/22 capsule,delayed release escitalopram oxalate 20 mg tablet 20 mg PO DAILY #90 tabs 03/12/21 01/16/22 (Lexapro) levothyroxine 75 mcg tablet 75 mcg PO DAILY #90 tabs 08/20/21 01/16/22 lorazepam 0.5 mg tablet (Ativan) 0.5 mg PO DAILY PRN anxiety #4 tabs 01/16/22 01/16/22 phentermine 15 mg capsule 15 mg PO DAILY #30 caps 01/16/22 01/16/22 sertraline 25 mg tablet 25 mg PO DAILY #30 tabs 11/10/22 11/10/22 cyclobenzaprine 10 mg tablet 10 mg PO TID PRN #10 tabs 02/04/22 dexamethasone 4 mg tablet 4 mg PO DAILY #3 tabs 02/04/22 oxycodone 5 mg capsule 5 mg PO Q8H PRN #7 caps 02/04/22 Previous Rx's Medication Instructions Recorded cholecalciferol (vitamin D3) 1,250 1,250 mcg PO QWEEK #8 tabs 03/30/20 mcg (50,000 unit) tablet omeprazole magnesium 20 mg 20 mg PO DAILY #30 caps 01/30/21 capsule,delayed release escitalopram oxalate 20 mg tablet 20 mg PO DAILY #90 tabs 03/12/21 (Lexapro) levothyroxine 75 mcg tablet 75 mcg PO DAILY #90 tabs 08/20/21 lorazepam 0.5 mg tablet (Ativan) 0.5 mg PO DAILY PRN anxiety #4 tabs 01/16/22 phentermine 15 mg capsule 15 mg PO DAILY #30 caps 01/16/22 sertraline 25 mg tablet 25 mg PO DAILY #30 tabs 01/16/22 cyclobenzaprine 10 mg tablet 10 mg PO TID PRN #10 tabs 02/04/22 dexamethasone 4 mg tablet 4 mg PO DAILY #3 tabs 02/04/22 oxycodone 5 mg capsule 5 mg PO Q8H PRN #7 caps 02/04/22 Allergies Allergy/AdvReac Type Severity Reaction Status Date / Time amoxicillin Allergy Intermediate Verified 01/16/22 14:38 Penicillins Allergy Intermediate rash Verified 01/16/22 14:38 General Stated Complaint: Nk/Back Pain BRO: 3 Review of Systems All systems reviewed & are unremarkable except as noted in HPI and below PFSH All Active Problems (Updated 02/04/22 @ 23:11 by MARIYA Menjivar) Back pain (Acute) Hydronephrosis (Acute) Anxiety (Chronic) Depression (Chronic) Morbid obesity (Acute) Hernia (Chronic) GERD (gastroesophageal reflux disease) (Chronic) Vitamin D deficiency (Acute) Hypothyroid (Chronic) Anxiety (Chronic) Depression (Chronic) Medical History (Updated 02/04/22 @ 23:11 by MARIYA Menjivar) Chondromalacia patellae, 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 Brother Alcohol abuse Daughter No problems noted. Daughter No problems noted. Maternal Grandfather , age 83 No problems noted. Paternal Grandfather No problems noted. Maternal Grandmother , age 74 No problems noted. Paternal Grandmother No problems noted. Social History (Updated 05/15/21 @ 19:11 by Jillian Soto) Smoking/Tobacco Use Status: Never Second Hand Exposure: No Smoking risk assessment performed?: Yes Alcohol Intake: current Alcohol Intake frequency: a few times a month Alcohol type: beer Drug use: Never Substance use type: does not use Caregiver/Support person: No Household members: spouse and children Housing: house Communication Needs: None Do you need help understanding health information?: Never Pets and animals: Yes Pets and animals: dog(s) and farm animals Sexually active: Yes Do you think of yourself as: straight/heterosexual Current gender identity: female What is your relationship status?: How often do you talk on the phone with friends or family?: three or more times per week How often do you get together with friends or relatives?: once per week How often do you attend druze or mandaen services?: 1-3 times per year Do you belong to any clubs or organized social groups?: no Panel score (0-1 are the most socially isolated patients): 2 Sharon/Uatsdin: No preference Seatbelt use: always Drive intox or ride w/intox regional company truck driver: No Do you feel safe at home: Yes Do you feel safe in your relationship?: Yes Exam Const General: cooperative Resp Effort & Inspection: normal respiratory effort Auscultation: clear to auscultation bilaterally Cardio Rate: regular rate Rhythm: regular rhythm GI Other: No CVA tenderness, no abdominal bruit or pulsatile mass, mild left lower quadrant abdominal tenderness Back/Spine/Pelvis Back: no CVA tenderness Other: Paraspinal tenderness noted to lumbar spine Skin General skin exam: no rashes or lesions noted Neuro General: patient alert and patient oriented x3 Other: Strength and sensation intact distally to all 4 extremities, ambulatory with antalgic although steady gait Negative straight leg raise bilaterally Negative Babinski Extrem Other: Distal pulses intact Course Vital Signs Vital signs: Vital Signs Temperature 37.1 C 02/04/22 21:00 Pulse 83 02/04/22 21:00 Respiratory Rate 18 02/04/22 21:00 Blood Pressure 145/72 H 02/04/22 21:00 Pulse Oximetry 98 02/04/22 21:00 Temperature 37.1 C 02/04/22 21:00 Temperature Source Tympanic 02/04/22 21:00 Pulse 83 02/04/22 21:00 Respiratory Rate 18 02/04/22 21:00 Respiratory Effort 02/04/22 21:05 Blood Pressure 145/72 H 02/04/22 21:00 Pulse Oximetry 98 02/04/22 21:00 Oxygen Delivery Method Room Air 02/04/22 21:00 Oxygen Flow Rate 0 02/04/22 21:00 Pain Level 7 02/04/22 21:00 Lab/Test Results Lab/Test Results: Laboratory Tests Range/Units 02/04/22 02/04/22 02/04/22 21:10 21:38 21:38 WBC (4.4-10.8) 10^3/uL 11.51 H RBC (3.93-5.22) 10^6/uL 4.61 Hgb (11.2-15.7) g/dL 13.4 Hct (36.0-46.0) % 39.8 MCV (80-95) fL 86 MCH (27.0-33.0) pg 29.1 MCHC (32.0-36.0) % 33.7 RDW (11.7-14.6) % 12.2 Plt Count (130-400) 10^3/uL 236 MPV (8.0-11.0) fL 10.8 Immature Gran % 0.2 Neutrophils % 64.0 Lymphocytes % 26.9 Monocytes % 7.0 Eosinophils % 1.6 Basophils % 0.3 Nucleated RBC % (0.0-0.3) % 0.0 Absolute Neutrophils (1.2-6.7) 10^3/uL 7.37 H Absolute Lymphocytes (1.2-3.4) 10^3/uL 3.10 Absolute Monocytes (0.1-0.8) 10^3/uL 0.81 H Absolute Eosinophils (0.0-0.7) 10^3/uL 0.18 Absolute Basophils (0.0-0.2) 10^3/uL 0.03 Sodium (136-145) mmol/L 138 Potassium (3.5-5.1) mmol/L 3.6 Chloride (98-107) mmol/L 101 Carbon Dioxide (21.0-32.0) mmol/L 30.2 Anion Gap (3-11) mmol/L 6.8 BUN (7-18) mg/dL 16 Creatinine (0.55-1.02) mg/dL 0.7 Est GFR (CKD-EPI 2020) (mL/min/1.73m2) 113.46 Glucose (74-106) mg/dL 98 Calcium (8.5-10.1) mg/dL 9.3 Total Bilirubin (0.2-1.0) mg/dL 0.2 AST (15-37) U/L 12 L ALT (14-59) U/L 26 Alkaline Phosphatase (46-116) U/L 70 Total Protein (6.4-8.2) g/dL 7.0 Albumin (3.4-5.0) g/dL 3.6 Lipase (73-393) U/L 73 Urine Color (Yellow) Yellow Urine Clarity (Clear) Sl Cloudy Urine pH (5-8) 6.0 Ur Specific [place] (1.005-1.025) >= 1.030 H Urine Protein (Negative) mg/dL Negative Urine Ketones (Negative) mg/dL Negative Urine Blood (Negative) Negative Urine Nitrite (Negative) Negative Urine Bilirubin (Negative) Negative Urine Urobilinogen (Up TO 0.2) EU/dL 0.2 Ur Leukocyte Esterase (Negative) Negative Urine Glucose (Negative) mg/dL Negative
[2022-02-04] MEDS: Dexamethasone 4 MG/ML VIAL IVP (23:18)
[2022-02-04 23:19] VITALS: BP 125/70; PULSE 78; RESP 12; TEMP 36.7; O2SAT 100
== END 2022-02-04 23:20 | disposition home or self-care (01) ==
PROVIDERS: Emergency Provider Physician Assistant; PCP Nurse Practitioner Family
DX: M54.50 Low back pain, unspecified (principal); N13.30 Unspecified hydronephrosis
CPT/HCPCS: 36415; 80053; 83690; 96374; 96375; 99285; 74177; 81003; 85025; 99284; J1100; J1170; J3360; J3490

== ENCOUNTER 2022-02-10 04:14 | Outpatient (CLI) | payer BC, MEDICAID, SELFPAY ==
[2022-02-10 16:06] LABS: HCT 39.1 % (36.0-46.0); MCH 29.2 pg (27.0-33.0); MCHC 33.2 % (32.0-36.0); MCV 88 fL (80-95); MPV 10.8 fL (8.0-11.0); Platelet Count 251 10^3/uL (130-400); RBC 4.45 10^6/uL (3.93-5.22); RDW 12.6 % (11.7-14.6); RDW-SD 40.4 fL; WBC 11.77 10^3/uL (4.4-10.8)
[2022-02-10 16:14] LABS: Hemoglobin A1C 5.5 % (<5.7)
[2022-02-10 16:59] LABS: ALT 33 U/L (14-59); AST 17 U/L (15-37); Albumin 3.8 g/dL (3.4-5.0); Alkaline Phosphatase 60 U/L (46-116); BUN 17 mg/dL (7-18); Bilirubin, Total 0.2 mg/dL (0.2-1.0); CREATININE 0.8 mg/dL (0.55-1.02); Calculated LDL 115 mg/dL (<100); Chloride 101 mmol/L (98-107); Cholesterol 204 mg/dL (<200); Estimated GFR 96.66 (mL/min/1.73m2); Glucose 90 mg/dL (74-106); HDL Cholesterol 47 mg/dL (40-60); Sodium 139 mmol/L (136-145); TSH (W/Ref FT4) 14.58 uIU/mL (0.36-3.74); Total Protein 7.3 g/dL (6.4-8.2); Triglyceride 213 mg/dL (<150)
[2022-02-10 17:17] LABS: FREE T4 0.67 ng/dL (0.76-1.46)
== END 2022-02-10 04:15 | disposition home or self-care (01) ==
PROVIDERS: PCP Nurse Practitioner Family; Visit Provider Nurse Practitioner Family
DX: E03.9 Hypothyroidism, unspecified (principal); E66.01 Morbid (severe) obesity due to excess calories; F32.A Depression, unspecified; F41.9 Anxiety disorder, unspecified
CPT/HCPCS: 36415; 80053; 80061; 85027; 83036; 84439; 84443

== ENCOUNTER 2022-03-19 02:25 | Outpatient (CLI) | payer BC, MEDICAID, SELFPAY ==
--- NOTE | 2022-03-19 06:30 | DI.NM_ITS ---
Exam(s) NM DTPA RENOGRAM W LASIX CLINICAL HISTORY: right mild hydro, ? obstruction,n13.50. COMPARISON: CT CT ABDOMEN PELVIS W from 02/04/2022 EXAMINATION: Dose: 11.5 mCi Tc-99m DTPA Images: Immediately for 1 minute followed by dynamic for 30 minutes. Thirty-fivemg Lasix was adminis tered after peak uptake in the renal cortex at approximately 12 min. FINDINGS: Time to peak: Right: 20 seconds (< 5 min normal) Left: 20 seconds (< 5 min normal) Curve Appearance: Right: T1/2 (Lasix to half-Lasix) 12 min Left: T1/2 (Lasix to half-Lasix) 12 min The time activity curve reveals slight delay in the washout of the right collecting system.. Right r enal pelvis is visually dilated as was noted on prior CT. Split renal function: Appears visually close to 50/ 50 however calculated split function is: Right: 36 % Left: 64 % IMPRESSION: 1. Dilated, non-obstructed right collecting system.
[2022-03-19] MEDS: Furosemide 40 MG/4 ML VIAL 35 MG IJ (09:09)
== END 2022-03-19 02:45 ==
LOC: DI 02:25
PROVIDERS: PCP Nurse Practitioner Family; Visit Provider Nurse Practitioner Gerontology
DX: N13.30 Unspecified hydronephrosis (principal)
CPT/HCPCS: 78708; J1940

== ENCOUNTER 2022-05-13 03:33 | Outpatient (CLI) | payer BC, MEDICAID, SELFPAY ==
[2022-05-13 16:05] LABS: TSH (W/Ref FT4) 3.75 uIU/mL (0.36-3.74)
[2022-05-13 16:24] LABS: FREE T4 0.84 ng/dL (0.76-1.46)
== END 2022-05-13 03:34 | disposition home or self-care (01) ==
PROVIDERS: PCP Nurse Practitioner Family; Visit Provider Nurse Practitioner Family
DX: E03.9 Hypothyroidism, unspecified (principal)
CPT/HCPCS: 36415; 84439; 84443

== ENCOUNTER 2022-08-20 03:32 | Outpatient (CLI) | payer BC, SELFPAY ==
[2022-08-20 17:33] LABS: TSH (W/Ref FT4) 1.71 uIU/mL (0.36-3.74)
== END 2022-08-20 03:33 | disposition home or self-care (01) ==
LOC: LBO 03:32
PROVIDERS: PCP Nurse Practitioner Family; Visit Provider Nurse Practitioner Family
DX: E03.9 Hypothyroidism, unspecified (principal)
CPT/HCPCS: 36415; 84443

== ENCOUNTER → 2023-03-18 02:30 | Outpatient (CLI) | payer BC, SELFPAY ==
--- NOTE | 2023-03-18 08:06 | DI.NM_ITS ---
Exam(s) NM MAG 3 RENOGRAM W LASIX CLINICAL HISTORY: ABN split function monitoring,HYDRONEPHROSIS,N13.30. COMPARISON: NM NM DTPA RENOGRAM W LASIX from 03/19/2022 EXAMINATION: Dose: 9 mCi Tc-99m MAG3 Images: Immediately for 1 minute followed by dynamic for 45 minutes. 21mg Lasix was administered afte r peak uptake in the renal cortex at approximately 12 min. FINDINGS: Time to peak: Right: 3 min (< 5 min normal) Left: 3 min (< 5 min normal) Curve Appearance: Right: T1/2 (Lasix to half-Lasix) 11.3 min Left: T1/2 (Lasix to half-Lasix) 10.1 min The time activity curve reveals no significant delay in the washout of either collecting system. (< 10 min normal, 10-15 min Low grade obstruction, 15-20 min moderate,. 20 min high grade) Split renal function: Right: 46 % Left: 54 % IMPRESSION: 1. No evidence of obstruction. 2. Improved calculated split renal function since 03/19/2022.
[2023-03-18] MEDS: Furosemide 40 MG/4 ML VIAL 21 MG IJ (14:00)
== END ==
PROVIDERS: PCP Nurse Practitioner Family; Visit Provider Nurse Practitioner Gerontology
DX: N13.30 Unspecified hydronephrosis (principal); N39.8 Other specified disorders of urinary system
CPT/HCPCS: 78708; A9540; J1940

== ENCOUNTER 2023-06-09 04:51 | Outpatient (CLI) | payer BC, SELFPAY ==
[2023-06-09 16:38] LABS: HCT 38.2 % (36.0-46.0); HGB 12.8 g/dL (11.2-15.7); MCH 29.6 pg (27.0-33.0); MCHC 33.5 % (32.0-36.0); MCV 88 fL (80-95); MPV 11.6 fL (8.0-11.0); Platelet Count 207 10^3/uL (130-400); RBC 4.32 10^6/uL (3.93-5.22); RDW-SD 39.1 fL; WBC 7.45 10^3/uL (4.4-10.8)
[2023-06-09 17:31] LABS: Anion Gap 10.6 mmol/L (3-11); BUN 16 mg/dL (7-18); CO2 26.4 mmol/L (21.0-32.0); CREATININE 0.6 mg/dL (0.55-1.02); Calculated LDL 100 mg/dL (<100); Chloride 104 mmol/L (98-107); Cholesterol 166 mg/dL (<200); Estimated GFR 117.02 (mL/min/1.73m2); Glucose 110 mg/dL (74-106); HDL Cholesterol 56 mg/dL (40-60); Potassium 3.9 mmol/L (3.5-5.1); Sodium 141 mmol/L (136-145); TSH (W/Ref FT4) 4.16 uIU/mL (0.36-3.74); Triglyceride 54 mg/dL (<150)
[2023-06-09 17:48] LABS: FREE T4 0.98 ng/dL (0.76-1.46)
[2023-06-09 18:25] LABS: Vitamin D 25 Total 34.4 ng/mL (30-100)
== END 2023-06-09 04:52 | disposition home or self-care (01) ==
LOC: LBO 04:51
PROVIDERS: PCP Nurse Practitioner Family; Visit Provider Nurse Practitioner Family
DX: Z00.00 Encounter for general adult medical examination without abnormal findings (principal); K21.9 Gastro-esophageal reflux disease without esophagitis; E03.9 Hypothyroidism, unspecified; F98.8 Other specified behavioral and emotional disorders with onset usually occurring in childhood and adolescence; E55.9 Vitamin D deficiency, unspecified
CPT/HCPCS: 36415; 80048; 80061; 82306; 85027; 84439; 84443

== ENCOUNTER 2024-07-04 00:40 | Outpatient (CLI) | payer BC, SELFPAY ==
[2024-07-04 09:44] LABS: Calculated LDL 106 mg/dL (<100); Cholesterol 187 mg/dL (<200); HDL Cholesterol 74 mg/dL (>or=50); TSH (W/Ref FT4) 4.05 uIU/mL (0.36-3.74); Triglyceride 36 mg/dL (<150)
[2024-07-04 19:25] LABS: FSH 45.2 mIU/mL (See Note); LH 14.3 mIU/mL (See Note)
[2024-07-07 14:28] LABS: Estradiol, Mass Spectrometry 28 pg/mL; Estrone 30 pg/mL
== END 2024-07-04 00:41 | disposition home or self-care (01) ==
LOC: LBO 00:41
PROVIDERS: PCP Nurse Practitioner Family; Visit Provider Nurse Practitioner Family
DX: N95.1 Menopausal and female climacteric states (principal); E66.01 Morbid (severe) obesity due to excess calories; Z00.00 Encounter for general adult medical examination without abnormal findings; E03.9 Hypothyroidism, unspecified; E55.9 Vitamin D deficiency, unspecified; F33.0 Major depressive disorder, recurrent, mild; F41.9 Anxiety disorder, unspecified; F98.8 Other specified behavioral and emotional disorders with onset usually occurring in childhood and adolescence; K21.9 Gastro-esophageal reflux disease without esophagitis
CPT/HCPCS: 36415; 80061; 82670; 82679; 83001; 83002; 84439; 84443

== ENCOUNTER 2024-09-30 00:55 | Outpatient (CLI) | payer OTHER, SELFPAY ==
[2024-09-30 15:47] LABS: TSH (W/Ref FT4) 2.27 uIU/mL (0.36-3.74)
== END 2024-09-30 00:56 | disposition home or self-care (01) ==
PROVIDERS: PCP Nurse Practitioner Family; Visit Provider Nurse Practitioner Family
DX: E03.9 Hypothyroidism, unspecified (principal)
CPT/HCPCS: 36415; 84443

== ENCOUNTER 2024-10-18 12:06 | Emergency (ER) | payer OTHER, SELFPAY ==
[2024-10-18 12:10] VITALS: BP 106/71; PULSE 82; RESP 16; TEMP 36.6; O2SAT 97
--- NOTE | 2024-10-18 12:29 | W.ED.GENAD ---
Discharge Plan Disposition Patient Disposition: Home Condition: Improving Discharge Details Clinical Impression: Depression, Anxiety, Abdominal pain, Constipation, Hematoma, Suicidal thoughts Primary Care Provider: Liat Howard ED Provider: Junie Luna Home Meds and New Rx's Prescriptions: Continued triamcinolone acetonide 0.5 % cream 1 applic topical BID PRN (Reason: dermatitis) Qty: 15 1RF Rx Instructions: apply to affected area BID as needed sertraline 50 mg tablet 75 mg PO DAILY Qty: 135 3RF Rx Instructions: Take 1.5 tabs daily. estradiol 0.5 mg tablet 0.5 mg PO DAILY Qty: 30 3RF levothyroxine 125 mcg tablet 125 mcg PO DAILY Qty: 90 3RF methylphenidate HCl 10 mg tablet 10 mg PO BID MDD 20 mg Qty: 56 0RF lorazepam [Ativan] 0.5 mg tablet 0.5 mg PO DAILY PRN (Reason: anxiety) Qty: 28 0RF methylphenidate HCl 36 mg tablet extended release 24hr 36 mg PO QAM MDD 1 tablet Qty: 28 0RF Discharge Instructions Instructions: Abdominal Pain, Adult ED, Depression in adults - Discharge instructions Additional Instructions: As we discussed, your CT scan was reassuring with no large masses or abnormalities noted. You will likely require follow-up with colonoscopy given the chronicity of your symptoms as well as the previous anal fissures. I would ask you follow-up with your primary care within the next week for reevaluation and discuss further. Your hematoma appears to be healing well, I do not see indication of infection at this point. Please continue with compression, cool compresses to help with discomfort. He may use Tylenol and ibuprofen as needed for discomfort. Please take as directed on the packaging. Regarding your mental health, please keep your safety plan next to your bed so we can refer to it whenever you need. Please keep the [facility] [employer] phone number in your phone and available should you have any worsening symptoms. Please continue with your typical medications. They will be checking in on you and helping you get set up with a counselor that does not require insurance, particularly as this has been an issue. If you develop any increasing thoughts of depression, thoughts of harming yourself or suicidal ideation please return to the emergency department immediately. You may call [phone] at any time for the phone call discussion as well. Please follow-up with primary care in 1 week for reevaluation. Referrals: Liat Howard NP [Primary Care Provider, Medicine] [facility] Date/Time Provider Initiated Documentation: 10/18/24 12:29. Limitations to Documentation: no limitations. Information obtained by: patient and RN notes reviewed. History of Present Illness 39 year old F presents to the emergency department with the chief complaint of LLQ pain, hematoma and suicidal ideations, described as moderate, Quality is described as aching (left hip/hematoma), and is localized to the abdomen, left and lower extremity. Patient reports no radiation. Patient started experiencing this month(s) (abdominal pain has been months, hip a few days, SI intermittent) No relieving factors improve symptom(s), Movement worsens symptoms . Patient notes denies chest pain, cough, fever/chills, headaches, loss of appetite, nausea/vomiting, rash, shortness of breath and weakness. Patient did receive the following treatments prior to arrival, none Related Data Home Medications ?Medication ?Instructions ?Recorded ?Confirmed triamcinolone acetonide 0.5 % 1 applic topical BID PRN 04/10/23 10/18/24 topical cream dermatitis #15 grams sertraline 50 mg tablet 75 mg (1.5 x 50 mg) PO DAILY #135 06/13/24 10/18/24 tabs estradiol 0.5 mg tablet 0.5 mg PO DAILY #30 tabs 07/15/24 10/18/24 levothyroxine 125 mcg tablet 125 mcg PO DAILY #90 tabs 07/15/24 10/18/24 methylphenidate HCl 10 mg tablet 10 mg PO BID #56 tabs 08/22/24 10/18/24 lorazepam 0.5 mg tablet (Ativan) 0.5 mg PO DAILY PRN anxiety #28 09/02/24 10/18/24 tabs methylphenidate HCl 36 mg 36 mg PO QAM #28 tabs 09/26/24 10/18/24 tablet,extended release 24 hr Previous Rx's ?Medication ?Instructions ?Recorded triamcinolone acetonide 0.5 % 1 applic topical BID PRN 04/10/23 topical cream dermatitis #15 grams sertraline 50 mg tablet 75 mg (1.5 x 50 mg) PO DAILY #135 06/13/24 tabs estradiol 0.5 mg tablet 0.5 mg PO DAILY #30 tabs 07/15/24 levothyroxine 125 mcg tablet 125 mcg PO DAILY #90 tabs 07/15/24 methylphenidate HCl 10 mg tablet 10 mg PO BID #56 tabs 08/22/24 lorazepam 0.5 mg tablet (Ativan) 0.5 mg PO DAILY PRN anxiety #28 09/02/24 tabs methylphenidate HCl 36 mg 36 mg PO QAM #28 tabs 09/26/24 tablet,extended release 24 hr Allergies Allergy/AdvReac Type Severity Reaction Status Date / Time amoxicillin Allergy Intermediate Other (See Verified 10/18/24 12:15 Comment) Penicillins Allergy Intermediate rash Verified 10/18/24 12:15 General Stated Complaint: PsychEval BRO: 2 Review of Systems Constitutional Constitutional: Reports as per HPI, Denies chills and Denies fever(s) Cardiovascular Cardiovascular: Reports as per HPI, Denies chest pain and Denies dyspnea Respiratory Respiratory: Reports as per HPI, Denies cough and Denies dyspnea Gastrointestinal Gastrointestinal: Reports as per HPI Musculoskeletal Musculoskeletal: Reports as per HPI and Denies back pain Integumentary/Breasts Skin/Breast: Reports as per HPI, Denies rash and Reports skin swelling (ecchymosis and swelling left lateral hip) Neurologic Neurologic: Reports as per HPI Psychiatric Psychiatric: Reports depression, Denies auditory hallucinations, Reports hopelessness, Reports anhedonia, Denies panic attacks, Denies visual hallucinations, Denies hallucinations, Denies homicidal ideation and Reports suicidal ideation Exam Const General: cooperative, healthy appearing, comfortable, no acute distress, well developed and anxious (tearful) Nutritional Appearance: average body habitus and well nourished Orientation: alert and awake Resp Effort & Inspection: normal respiratory effort, able to speak in complete sentences and no respiratory distress Auscultation: clear to auscultation bilaterally, no rales, no rhonchi and no wheezes Cardio Rate: regular rate Rhythm: regular rhythm Heart Sounds: S1 normal and S2 normal GI Palpation: soft, no hepatosplenomegaly, no masses, no pulsatile masses and tender (LLQ, feels slightly full) in the LLQ; not in the LUQ, not at McBurney's point, Meza's sign negative, psoas sign negative and with no rebound tenderness Percussion: normal to percussion Auscultation: normal bowel sounds Back/Spine/Pelvis Back: no CVA tenderness Skin General skin exam: ecchymosis (left hip) Neuro General: patient alert and patient awake Cognition: normal cognition Speech: speech normal Extrem Upper/lower leg/hip images:  1. area of swelling and ecchymosis, no erythema, open wounds or drainage Course Vital Signs Vital signs: Vital Signs Temperature 36.6 C 10/18/24 12:10 Pulse 82 10/18/24 12:10 Respiratory Rate 16 10/18/24 12:10 Blood Pressure 106/71 10/18/24 12:10 Pulse Oximetry 97 10/18/24 12:10 Temperature 36.6 C 10/18/24 12:10 Pulse 82 10/18/24 12:10 Respiratory Rate 16 10/18/24 12:10 Blood Pressure 106/71 10/18/24 12:10 Pulse Oximetry 97 10/18/24 12:10 Medical Decision Making Patient is a pleasant 39-year-old female with past medical history significant for hydronephrosis, ADD, GERD, hypothyroid, anxiety, depression, bariatric surgery, hysterectomy, cholecystectomy, presenting today with chief complaint of worsening chronic abdominal pain in the left lower quadrant, pain in the left hip as well as suicidal ideation. Patient reports that the abdominal pain began a few months ago and has been consistent directly on the left side. She reports that she is chronically had issues with constipation and anal fissures. HAs never been seen by GI or had colonoscopy. She reports that she takes MiraLAX daily. Has been seen by her primary care for this and they had been wanting to obtain a CT scan but were having issues with insurance. Regarding the patient's left hip, she reports that few days ago she was running with her dog and loose pants when she tripped over the pant leg and fell landing directly on the left hip. She was concerned given the amount of swelling and ecchymosis and was seen at urgent care yesterday. She is concerned, based on her own research, that she may be at risk for infection in the area or underlying injury. She denies any numbness or tingling. Denies other injury at the time of the incident. Has never had issues like this before. Regard to the suicidal ideation, patient reports that she has had chronic issues with depression but finds that typically she is well-managed with her counselor as well as excellent familial support. However, she reports that due to insurance issues, she has not been able to see her counselor on a regular basis. She states that they are going through several financial and social stressors currently. She has been able to get her medications but states that when her depression escalates greatly she often does not want a get out of bed to take the medications. While she denies immediate suicidal ideation, she reports that intermittently these ideas will increase and that she has thought about driving her car into a tree. She does remain forward thinking and acknowledges that she is trying her physical ailments are largely contributing to her increased depression. She denies any substance use, no alcohol or illicit drug intake. Does not use marijuana. Has never been hospitalized for mental health reasons historically, has never attempted suicide in the past. \On exam, patient appears anxious and tearful but otherwise nontoxic. She is hemodynamically stable. Abdomen is fairly benign, slight enlargement along the left side but feels more tubules such as constipation. Not significantly tender. Exam of the left hip shows a large hematoma but no indication at this point for acute infection. She has 2+ distal pulses and intact sensation. Full range of motion and no pain with axial loading of the hip. Patient denies any home homicidal ideations, hallucinations. She does seem very self-aware but I am concerned about her impulsivity and feel that further evaluation with mental health would be appropriate. Plan to obtain baseline labs, CT scan that had been previously recommended, Imaging will extend through the hip although I find infection or fracture less likely. Will also have patient evaluated by mental health and in the meantime, patient will have a one-to-one sitter. Of note, the patient did agree to our roles regarding mental health evaluation and needing to be in paper clothing but has not wanted to keep her phone with her as she is a point of contact for her children. She has not yet felt that she should talk to her regarding the events bring her into today. Patient is very concerned that she potentially has abdominal cancer or other serious etiology causing her discomfort which is one of the reason she is delaying further discussion with them. As she is not immediately suicidal based on my initial exam, I feel that her having her cell phone with her is appropriate at this point as I believe trying to take this from her, especially given the social context, we lead her to eleladio which would be at a service. However, we did discuss that should the patient need to be admitted for psychiatric reasons we need to be much more strict with our rules and she is agreeable to following these if we do need to escalate them. Labs are evaluated, no acute abnormalities appreciated. CT reviewed by radiologist no acute findings. Mental health at bedside with the patient for further evaluation and disposition pending. Patient was given her baseline medications including one of her as needed Ativan tablets. Patient had lengthy evaluation with mental health. After long discussion, they have decided to safety plan the patient that she does have excellent resources and seems to have good insight. However, which has been lacking is the supports she typically uses for her mental health such as her counseling which her mental health providers were able to provide for her. They are going to be checking in with the patient and have gotten her in with a local counselor. They also discussed with her front porch option, gave her emergency contact phone number. Patient feels more supported and agreeable to this. Patient feels safe with the plan and ready for discharge home. Her will come pick her up as she did have the oral Ativan. I encouraged patient to follow-up closely with her primary care regarding her acute on chronic abdominal discomfort. Likely, particular given her history of anal fissures, patient will need a colonoscopy. I also encouraged hydration and supportive care. In regard to the hematoma, I do not see indication at this point for infection but encouraged supportive care with compression, Tylenol and ibuprofen. For the abdominal pain, hematoma and her mental health, strict return precautions were discussed. She is aware that she may return at any point should any of her symptoms worsen. She again, reports that she has excellent social supports, particular with her and feels safe at home. All of her questions and concerns were addressed and she is in agreement this plan. Quality:SDOH Health Related Social Needs: Health related social needs house/econ circumstance lonely/isolated PFSH All Active Problems (Updated 10/18/24 @ 15:38 by MARIYA Drew) Suicidal thoughts (Acute) Hematoma (Acute) Constipation (Acute) Abdominal pain (Acute) Hydronephrosis (Acute) Attention deficit disorder (ADD) in adult (Acute) Hernia (Chronic) GERD (gastroesophageal reflux disease) (Chronic) Vitamin D deficiency (Acute) Hypothyroid (Chronic) Anxiety (Chronic) Depression (Chronic) Medical History (Updated 10/18/24 @ 15:38 by MARIYA Drew) Morbid obesity Bariatric surgery at [facility] June 2022 Chondromalacia patellae, 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) Effusion, left knee Contusion of knee, left (04/08/19) Depression Surgical History Hx of cholecystectomy History of hysterectomy Family History (Updated 05/24/24 @ 10:30 by Dina Meehan) Mother Asthma Depression Cancer head/neck - 2018 Father Alcohol abuse Depression Heart disease Diabetes Hyperlipidemia Hypertension Sister No problems noted. Brother Alcohol abuse Daughter No problems noted. Daughter No problems noted. Maternal Grandfather , age 83 Dementia Paternal Grandfather Alcohol use disorder Maternal Grandmother , age 74 No problems noted. Paternal Grandmother Alcohol use disorder Social History (Updated 05/24/24 @ 10:29 by Dina Meehan) Smoking/Tobacco Use Status: Never Second Hand Exposure: Yes (as a child) Smoking risk assessment performed?: Yes Alcohol Intake: current Alcohol Intake frequency: holidays/special occasions only Alcohol type: hard liquor Drug use: Never Substance use type: does not use Adopted: No Caregiver/Support person: No Household members: spouse and children Housing: house Number of Children: 4 Communication Needs: None Education Level: master's degree Do you need help understanding health information?: Never current occupation: Early Education [employer] Pets and animals: Yes Pets and animals: dog(s) and farm animals Sexually active: Yes Do you think of yourself as: straight/heterosexual Current gender identity: female What is your relationship status?: How often do you talk on the phone with friends or family?: three or more times per week How often do you get together with friends or relatives?: once per week How often do you attend hinduism or scientologist services?: 1-3 times per year Do you belong to any clubs or organized social groups?: no Panel score (0-1 are the most socially isolated patients): 2 What type of physical activity do you participate in: decline to answer Duration: 30-45 minutes/day Frequency: 3-4 times per week Sharon/Religious: No preference Special sharon needs: No Seatbelt use: always Helmet use: Yes Helmet use: always Drive intox or ride w/intox route driver coin machines: No Firearms in home: Yes Firearms unloaded and locked: Yes Do you feel safe at home: Yes Do you feel safe in your relationship?: Yes Victim of physical abuse: No Victim of emotional abuse: No Victim of sexual abuse: No Would you like helpful sources: No PAWSS Have you Been Recently Intoxicated or Drunk Within the Last 30 days?: No Have you Ever Experienced Previous Episodes of Alcohol Withdrawal?: No Have you ever Experienced Withdrawal Seizures?: No Have you ever Experienced Delirium Tremens(DT)s?: No Have you ever undergone Alcohol Rehabilitation Treatment (i.e, inpt ot outpatient treatment programs)?: No Have you ever Experienced Blackouts?: No Have you ever Combined Alcohol with other Downers within the last 90 days?: No Have you ever Combined Alcohol with any other Substance of Abuse during the last 90 days?: No Positive Blood Alcohol level on Presentation? [PCS.BAL]: No Evidence of Increased Autonomic Activity (i.e. HR>120, tremor, sweating, agitation, nausea)?: No Result: 0
[2024-10-18 12:43] LABS: Glucose Negative (Negative)
[2024-10-18 13:18] LABS: Abs Immature Grans 0.02 10^3/uL (0.0-0.06); HCT 37.7 % (36.0-46.0); HGB 12.4 g/dL (11.2-15.7); Immature Grans % 0.3 %; MCH 28.9 pg (27.0-33.0); MCHC 32.9 % (32.0-36.0); MCV 88 fL (80-95); MPV 11.3 fL (8.0-11.0); Platelet Count 194 10^3/uL (130-400); RBC 4.29 10^6/uL (3.93-5.22); RDW 11.7 % (11.7-14.6); RDW-SD 37.4 fL; WBC 7.89 10^3/uL (4.4-10.8)
[2024-10-18 13:39] LABS: ALT 39 U/L (14-59); AST 21 U/L (15-37); Albumin 3.8 g/dL (3.4-5.0); Alkaline Phosphatase 49 U/L (46-116); Anion Gap 4.1 mmol/L (3-11); BUN 18 mg/dL (7-18); Bilirubin, Total 0.4 mg/dL (0.2-1.0); CO2 30.9 mmol/L (21.0-32.0); Calcium 8.9 mg/dL (8.5-10.1); Chloride 104 mmol/L (98-107); Estimated GFR 120.77 (mL/min/1.73m2); Glucose 146 mg/dL (74-106); Lipase 31 U/L (<78); Magnesium 1.8 mg/dL (1.8-2.4); Potassium 4.1 mmol/L (3.5-5.1); Sodium 139 mmol/L (136-145); Total Protein 6.7 g/dL (6.4-8.2)
[2024-10-18] MEDS: Normal Saline Flush 10 ML SYR IVP (13:42)
[2024-10-18] MEDS: Normal Saline - Diluent 50 ML VIAL IJ (13:42)
[2024-10-18] MEDS: Omnipaque 350 MG/ML 100 ML BTL IJ (13:44)
--- NOTE | 2024-10-18 13:45 | DI.CT_ITS ---
Exam(s) CT ABDOMEN PELVIS W EXAM: CT ABDOMEN PELVIS W CLINICAL HISTORY: LLQ pain. TECHNIQUE: Imaging Protocol: Axial computed tomography images with coronal and sagittal reformatted images were created and reviewed CONTRAST MATERIAL: Intravenous: Omnipaque 350 Contrast volume:75 ml Oral: no COMPARISON: CT CT ABDOMEN PELVIS W from 02/04/2022 FINDINGS: ABDOMEN and PELVIS: Exam is limited by paucity of intra-abdominal fat and lack of oral contrast. Lung Bases: No acute findings. Liver: Normal density. No suspicious mass. Gallbladder and biliary tract: No radiodense calculus. No wall thickening or pericholecystic fluid. No biliary dilation. Pancreas: Normal density. No abnormal calcifications or inflammatory process. No evidence of mass. Spleen: Normal. Kidneys: Normal size, contour and axis. Nonobstructing stone near the lower pole of the right kidney. Stable appearance of prominent extrarenal pelvis. No obstructive uropathy. No suspicious masses seen. Adrenal glands: No masses seen. Vasculature: Abdominal aorta non-dilated. Soft tissues: 5 centimeter hematoma in the subcutaneous fat at the level of the lateral left hip. Bladder: No gross wall thickening. No calculi.No focal mass. Bowel: Suture material at the stomach. No obstruction. No bowel wall thickening. Appendix normal. Peritoneal cavity: No ascites. No focal collection. No mesenteric inflammatory response. No free air. Bones: Unremarkable for age. Reproductive organs: Hysterectomy. Lymph nodes: No pathologically enlarged lymph nodes. IMPRESSION:: Centimeter hematoma in the subcutaneous fat at the lateral left hip. No evidence fracture. Stable appearance of dilatation of the right renal pelvis. RADIATION DOSE DELIVERED: 490.46mGy.cm Total DLP DATA REPOSITORY: All CT scans at this facility are submitted to the National Radiology Data Registry (NRDR) Dose Index Registry (DIR) with the [employer] (ACR). RADIATION OPTIMIZATION: All CT scans at this facility use at least one of these dose optimization techniques: automated exposure control; mA and/or kV adjustment per patient size (includes targeted exams where dose is matched to clinical indication); or iterative reconstruction.
[2024-10-18] MEDS: LORazepam 0.5 MG TAB PO (14:09)
[2024-10-18] MEDS: Sertraline 50 MG TAB PO (14:09)
[2024-10-18] MEDS: Lactated Ringers 1,000 ML 1000 ML IV (14:10)
[2024-10-18] MEDS: Acetaminophen 325 MG TAB 650 MG PO (15:41)
[2024-10-18 15:50] VITALS: BP 102/61; PULSE 99; O2SAT 99
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
== END 2024-10-18 16:03 | disposition home or self-care (01) ==
PROVIDERS: Emergency Provider Physician Assistant; PCP Nurse Practitioner Family
DX: F32.A Depression, unspecified (principal); F41.9 Anxiety disorder, unspecified; K59.00 Constipation, unspecified; R45.851 Suicidal ideations; R10.9 Unspecified abdominal pain; S70.02XA Contusion of left hip, initial encounter; X58.XXXA Exposure to other specified factors, initial encounter
CPT/HCPCS: 99285; 99284; 81025; 00123; 80053; 83690; 96127; 96360; 74177; 81003; 83735; 85025; J3490

== ENCOUNTER 2024-12-22 05:34 | Outpatient (CLI) | payer OTHER, SELFPAY ==
--- NOTE | 2024-12-22 08:00 | DI.MAMMO_ITS ---
Exam(s) MAMMO SCREENING EXAM: MAMMO SCREENING CLINICAL HISTORY: screening,z12.39 TECHNIQUE: Mammograms were interpreted according to the usual protocol including computer analysis with CAD system, tomosynthesis and C-view imaging. COMPARISON: None. Baseline examination. FINDINGS: The breasts are composed of heterogeneously dense fibroglandular densities, Breast Density category C. No suspicious masses or suspicious microcalcifications are seen. No skin thickening or abnormal axillary lymph nodes are seen. IMPRESSION: BI-RADS Category 1, Negative mammogram. Yearly screening mammography is recommended. Breast Density: Category C - The breasts are heterogeneously dense, which may obscure small masses. Breast density Category C or D implies that the patient has dense breast tissue. Dense breast tissue can make it harder to find cancer on a mammogram. Dense breast tissue is also associated with an increased risk of breast cancer. This information about the result of the mammogram report was provided to the patient to raise their awareness. Use this report when you speak with the patient about their risks for breast cancer, which includes their family history. At that time, you may recommend additional screening tests (Ultrasound or MRI) as these tests may add significant information. A negative radiographic report should not delay biopsy if a dominant or clinically suspicious mass is present. Up to ten percent of cancers are not identified on mammography. A negative report may reinforce clinical impression. Adenosis and dense breasts may obscure an underlying neoplasm. False positive reports average 6 to 10%.
== END 2024-12-22 05:54 ==
LOC: DI 05:35
PROVIDERS: PCP Nurse Practitioner Family; Visit Provider Nurse Practitioner Family
DX: Z12.31 Encounter for screening mammogram for malignant neoplasm of breast (principal)
CPT/HCPCS: 77063; 77067

== ENCOUNTER 2025-03-01 06:17 | Day surgery (SDC) | payer OTHER, SELFPAY ==
[2025-03-01 06:20] VITALS: BP 97/70; PULSE 59; RESP 18; TEMP 36.6; O2SAT 99
[2025-03-01] MEDS: Lactated Ringers 1,000 ML 80 ML IV (06:49)
--- NOTE | 2025-03-01 07:16 | W.ANESPRE ---
General Info Date of Service Date Performed: 03/01/25 Height: 5 ft 5 in Weight: 64.5 kg Body Mass Index (BMI): 23.6 Surgical Procedure: Operation Date: 03/01/25 07:35 Proposed Procedure Side Surgeon p Colonoscopy Marilin Pineda MD Actual Procedure Side Surgeon p Colonoscopy Marilin Pineda MD Pre-Op Diagnosis Post-Op Diagnosis blood in stool Meds Allergies and Home Medications Allergies Allergy/AdvReac Type Severity Reaction Status Date / Time amoxicillin Allergy Intermediate Other (See Verified 03/01/25 06:32 Comment) Penicillins Allergy Intermediate rash Verified 03/01/25 06:32 Home Medication ?Medication ?Instructions ?Recorded triamcinolone acetonide 0.5 % 1 applic topical BID PRN 04/10/23 topical cream dermatitis #15 grams levothyroxine 125 mcg tablet 125 mcg PO DAILY #90 tabs 07/15/24 estradiol 0.5 mg tablet 0.5 mg PO DAILY #30 tabs 11/15/24 sertraline 100 mg tablet 50 mg (1/2 x 100 mg) PO DAILY #90 11/29/24 tabs bisacodyl 5 mg tablet,delayed 5 mg PO ONCE Colonoscopy Bowel 01/10/25 release Prep #8 tabs polyethylene glycol 3350 17 238 g PO ONCE #238 grams 01/10/25 gram/dose oral powder lorazepam 0.5 mg tablet (Ativan) 0.5 mg PO DAILY PRN anxiety #28 02/20/25 tabs methylphenidate HCl 36 mg 36 mg PO QAM #28 tabs 02/20/25 tablet,extended release 24 hr methylphenidate HCl 10 mg tablet 10 mg PO DAILY PRN 02/27/25 quetiapine 100 mg tablet 100 mg PO QHS #90 tabs 02/27/25 Current Visit Medications: Current Medications Generic Name Dose Route Start Last Admin Trade Name Freq PRN Reason Stop Dose Admin Ringer's Solution 1,000 mls @ 80 mls/hr 03/01/25 06:00 03/01/25 06:49 IV 03/01/25 23:59 80 mls/hr INFUSION LINDEN Administration Sodium Chloride 0 ml 03/01/25 06:00 Normal Saline Flush 10 Ml Syr IV 03/01/25 23:59 PRN PRN Sodium Chloride 0 ml 03/01/25 06:00 Normal Saline 10 Ml Vial IJ 03/01/25 23:59 DIRECTED PRN Sterile Water 0 ml 03/01/25 06:00 Water,Injection,Sterile 10 Ml Vial IJ 03/01/25 23:59 DIRECTED PRN PFSH Active Problems Active Problems: Problem Status Onset Code Blood in stool Acute K92.1 Change in bowel habits Acute R19.4 Bipolar disorder, unspecified Acute F31.9 Hydronephrosis Acute N13.30 Attention deficit disorder (ADD) in adult Acute F98.8 Hernia Chronic K46.9 GERD (gastroesophageal reflux disease) Chronic K21.9 Vitamin D deficiency Acute E55.9 Hypothyroid Chronic E03.9 Anxiety Chronic F41.9 Depression Chronic F32.9 Medical History Medical History Healthcare maintenance History of anal fissures Morbid obesity Bariatric surgery at [facility] June 2022 Chondromalacia patellae, 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) Effusion, left knee Contusion of knee, left (04/08/19) Depression Surgical History Surgical History History of bariatric surgery Hx of cholecystectomy History of hysterectomy Tobacco Smoking/Tobacco Use Status: Never Passive smoking exposure: No Second hand exposure: Yes (as a child) Alcohol Alcohol Intake: current Alcohol intake frequency: holidays/special occasions only Alcohol type: hard liquor Substance Use Substance use: Never Substance use type: does not use Vital Signs and Lab Results Vital Signs Most Recent Vital Signs in EMR: Most Recent Vital Signs Temp Pulse Resp BP Pulse Ox 36.6 C 59 L 18 97/70 L 99 03/01/25 06:20 03/01/25 06:20 03/01/25 06:20 03/01/25 06:20 03/01/25 06:20 Anesthesia Assessment and Plan Anesthesia History Personal History: PONV Family History: No Family History of Anesthesia Complications Exercise Tolerance Exercise Tolerance: Metabolic Equivalents>4 Pertinent Negatives Pertinent Negatives: No Symptoms of GERD, No Major Cardiovascular Symptoms or Complaints and No Major Pulmonary Symptoms or Complaints Cardiac & Pulmonary Exam Cardiac Exam: Normal S1/S2 Heart Sounds Pulmonary Exam: Clear Bilateral Breath Sounds Implantable Cardiac Device Does patient have a Pacemaker or an ICD?: No Airway Exam Known Difficult Airway: No Mallampati Class: 2 Mouth Opening: Normal (> 3cm) Thyromental Distance: Greater than 3 cm Neck Range of Motion: Full ROM Neck Circumference: Normal Teeth Condition: Normal Dentition ASA Classification ASA Score: ASA 2 Emergency Case?: No NPO Status NPO Status: NPO Clears >2 hours, Solids >8 hours Status Status: History of Hysterectomy Anesthesia Plan Resuscitation Status: Full Code Anesthesia Technique: General Anesthesia Airway Planned: Natural Airway Monitors Used: Standard Monitors Preoperative Comments:: C/O headache, requesting IV Tylenol
[2025-03-01 07:17] VITALS: BMI 23.6
--- NOTE | 2025-03-01 07:23 | W.PM.HP.N ---
Date of service: 03/01/25 Time of Service: 07:24 Assessment and Plan Assessment and plan (1) Change in bowel habits: Status: Acute Assessment and plan: Patient is a 39 yo female who presents for a diagnostic colonoscopy given hematochezia and history of anal fissures. She denies any recent changes in her health. A colonoscopy was discussed with her as well as the risks and benefits and consent was obtained prior to the procedure. Plan for diagnostic colonoscopy. (2) Blood in stool: Status: Acute (3) History of anal fissures: History of Present Illness Narrative: Patient is a 39 yo female who presents for a diagnostic colonoscopy given hematochezia and history of anal fissures. She denies any recent changes in her health. Review of Systems Cardiovascular Cardiovascular: Denies chest pain and Denies dyspnea Respiratory Respiratory: Denies dyspnea Gastrointestinal Gastrointestinal: Denies abdominal pain, Denies nausea and Denies vomiting Genitourinary Genitourinary: Denies dysuria PFSH All Active Problems Blood in stool (Acute) Change in bowel habits (Acute) Bipolar disorder, unspecified (Acute) Hydronephrosis (Acute) Attention deficit disorder (ADD) in adult (Acute) Hernia (Chronic) GERD (gastroesophageal reflux disease) (Chronic) Vitamin D deficiency (Acute) Hypothyroid (Chronic) Anxiety (Chronic) Depression (Chronic) Medical History Healthcare maintenance History of anal fissures Morbid obesity Bariatric surgery at 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 Brother Alcohol abuse Daughter No problems noted. Daughter No problems noted. Maternal Grandfather , age 83 Dementia Paternal Grandfather Alcohol use disorder Maternal Grandmother , age 74 No problems noted. Paternal Grandmother Alcohol use disorder Social History (Updated 05/24/24 @ 10:29 by Dina Meehan) Smoking/Tobacco Use Status: Never Second Hand Exposure: Yes (as a child) Smoking risk assessment performed?: Yes Alcohol Intake: current Alcohol Intake frequency: holidays/special occasions only Alcohol type: hard liquor Drug use: Never Substance use type: does not use Adopted: No Caregiver/Support person: No Household members: spouse and children Housing: house Number of Children: 4 Communication Needs: None Education Level: master's degree Do you need help understanding health information?: Never current occupation: Early Education Mechanical Manufacturing Technician/[employer] Pets and animals: Yes Pets and animals: dog(s) and farm animals Sexually active: Yes Do you think of yourself as: straight/heterosexual Current gender identity: female What is your relationship status?: How often do you talk on the phone with friends or family?: three or more times per week How often do you get together with friends or relatives?: once per week How often do you attend bahai or confucianist services?: 1-3 times per year Do you belong to any clubs or organized social groups?: no Panel score (0-1 are the most socially isolated patients): 2 What type of physical activity do you participate in: decline to answer Duration: 30-45 minutes/day Frequency: 3-4 times per week Sharon/Buddhism: No preference Special sharon needs: No Seatbelt use: always Helmet use: Yes Helmet use: always Drive intox or ride w/intox motor pool driver: No Firearms in home: Yes Firearms unloaded and locked: Yes Do you feel safe at home: Yes Do you feel safe in your relationship?: Yes Victim of physical abuse: No Victim of emotional abuse: No Victim of sexual abuse: No Would you like helpful sources: No Meds Allergies and Home Medications Allergies Allergy/AdvReac Type Severity Reaction Status Date / Time amoxicillin Allergy Intermediate Other (See Verified 03/01/25 06:32 Comment) Penicillins Allergy Intermediate rash Verified 03/01/25 06:32 Home Medications ?Medication ?Instructions ?Recorded ?Confirmed ?Type triamcinolone acetonide 0.5 % 1 applic topical BID PRN 04/10/23 03/01/25 Rx topical cream dermatitis #15 grams levothyroxine 125 mcg tablet 125 mcg PO DAILY #90 tabs 07/15/24 03/01/25 Rx estradiol 0.5 mg tablet 0.5 mg PO DAILY #30 tabs 11/15/24 03/01/25 Rx sertraline 100 mg tablet 50 mg (1/2 x 100 mg) PO DAILY #90 11/29/24 03/01/25 Rx tabs bisacodyl 5 mg tablet,delayed 5 mg PO ONCE Colonoscopy Bowel 01/10/25 03/01/25 Rx release Prep #8 tabs polyethylene glycol 3350 17 238 g PO ONCE #238 grams 01/10/25 03/01/25 Rx gram/dose oral powder lorazepam 0.5 mg tablet (Ativan) 0.5 mg PO DAILY PRN anxiety #28 02/20/25 03/01/25 Rx tabs methylphenidate HCl 36 mg 36 mg PO QAM #28 tabs 02/20/25 03/01/25 Rx tablet,extended release 24 hr methylphenidate HCl 10 mg tablet 10 mg PO DAILY PRN 02/27/25 03/01/25 History quetiapine 100 mg tablet 100 mg PO QHS #90 tabs 02/27/25 03/01/25 Rx Exam Narrative Exam Narrative: General: Well appearing, no acute distress. Skin: Good turgor, no visible rashes or lesion HEENT: Normocephalic, atraumatic, no visible masses, neck supple CV: Regular rate Lungs: Bilateral equal chest rise, non-labored breathing Abdomen: Non-distended Extremities: Warm, well perfused Neurologic: No focal deficits Psychiatric: Alert and oriented, normal mood and affect Results Last Vital Signs Temp 36.6 C 03/01/25 06:20 Pulse 59 L 03/01/25 06:20 Resp 18 03/01/25 06:20 BP 97/70 L 03/01/25 06:20 Pulse Ox 99 03/01/25 06:20 VTE Prohylaxis Risk Level: Low Risk Contraindications: Other (Preprocedure) Prophylaxis: Patient ambulatory Time Spent Time spent with Patient: <40 minutes Time was spent: preparing to see the patient(eg.review tests), obtaining and/or reviewing separately otained hiistory and counseling the patient
--- NOTE | 2025-03-01 08:02 | W.PM.DSUDISC ---
Date of service: 03/01/25 Discharge Plan Disposition Patient Disposition: Home Condition: Good Discharge Details Reason For Visit: Hematochezia, anal fissure Attending Provider: Marilin Pineda Primary Care Provider: Liat Howard Home Meds and New Rx's Prescriptions: Continued sertraline 100 mg tablet 50 mg PO DAILY Qty: 90 3RF Rx Instructions: 11/29/24 Pt decreased to 50 mg/day. triamcinolone acetonide 0.5 % cream 1 applic topical BID PRN (Reason: dermatitis) Qty: 15 1RF Rx Instructions: apply to affected area BID as needed levothyroxine 125 mcg tablet 125 mcg PO DAILY Qty: 90 3RF estradiol 0.5 mg tablet 0.5 mg PO DAILY Qty: 30 3RF methylphenidate HCl 36 mg tablet extended release 24hr 36 mg PO QAM MDD 1 tablet Qty: 28 0RF lorazepam [Ativan] 0.5 mg tablet 0.5 mg PO DAILY PRN (Reason: anxiety) Qty: 28 0RF quetiapine 100 mg tablet 100 mg PO QHS Qty: 90 3RF methylphenidate HCl 10 mg tablet 10 mg PO DAILY MDD 20 mg PRN Discontinued bisacodyl 5 mg tablet,delayed release (DR/EC) 5 mg PO ONCE Qty: 8 0RF Rx Instructions: Per Colonoscopy bowel prep instructions polyethylene glycol 3350 17 gram/dose powder 238 g PO ONCE Qty: 238 0RF Rx Instructions: For Colonoscopy bowel prep, as directed by office Discharge Instructions Additional Instructions: Your colonoscopy went well today. You did have evidence of a healed anal fissure and external hemorrhoids but otherwise the colon was normal. If you have any questions or concerns please contact the general surgery office. 1. If tolerated, consume a soft, low fiber diet for 1-2 days. 2[address] Do not drive, drink alcohol, operate machinery, make critical decisions, or do activities that require coordination or balance for 24 hours. 3. Because air was put into your colon during the procedure, expelling air from your rectum (passing gas or farting) is normal. 4. You may not have a bowel movement for 1-3 days because of the colonoscopy prep. This is normal. 5. Go directly to the emergency room if you notice any of the following: Develop chills (warm to touch), or if you have a thermometer and your temperature is above 101 Difficulty breathing or difficultly swallowing Persistent vomiting Severe abdominal pain, other than gas cramps Severe chest pain Black, tarry stools Any bleeding ? exceeding one tablespoon 6. Call your physician if the site where your intravenous was started becomes red, swollen, painful, and warm to touch. 7. Your physician has reviewed your pre-procedure medications. Please continue to take those medications as previously ordered. You will be given specific information/education regarding any changes to your medications before leaving. Stand Alone Forms: Portal Information Activity:: Activity as Tolerated Diet:: As Tolerated Discharge Orders Discharge Orders: Discharge Order (Routine); Ordered 03/01/25 Ordered By: Marilin Pineda DS: Diagnosis Discharge Diagnosis (1) Change in bowel habits: Status: Acute (2) Blood in stool: Status: Acute (3) History of anal fissures:
--- NOTE | 2025-03-01 08:03 | W.COLOREPORT ---
Date of service: 03/01/25 Time of Service: 08:04 Colonoscopy Report Date of procedure: 03/01/25 Pre-op diagnosis general: Hematochezia, history of anal fissure Post-op diagnosis procedure note: same Procedure: Colonoscopy Surgeon: Marilin Pineda Anesthesia Type: General:No Airway Estimated blood loss (mL): 0 Pathology: none sent Complications: None Disposition: PACU Indications: Patient is a 39 yo female who presents for a diagnostic colonoscopy given hematochezia and history of anal fissures. She denies any recent changes in her health. A colonoscopy was discussed with her as well as the risks and benefits and consent was obtained prior to the procedure. Prep: Miralax/Dulcolax Procedure Start Time: 07:39 Procedure End Time: 07:59 Retraction Time: 10 Findings: Evidence of healed anal fissure and external hemorrhoids. Otherwise normal colonoscopy. Procedure Description: Informed consent was obtained. The patient was taken to the endoscopy suite and placed in the left lateral decubitus position. After adequate intravenous sedation, digital rectal exam was performed, which showed evidence of a healed anal fissure and external hemorrhoids. A colonoscope was inserted into the rectum and easily negotiated to the cecum. The ileocecal valve and appendiceal orifice were identified. The entire colonic mucosa was then carefully circumferentially inspected upon slow withdrawal of the scope. The entire colon appeared normal. Retroflexion in the rectum was unremarkable. The patient tolerated the procedure well with no complications. Postoperatively, the patient was transferred to the recovery room in stable condition. Holden Bowel Prep Holden Bowel Prep Right Colon: 3 Left Colon: 3 Transverse Colon: 3 Total Score: 9
[2025-03-01 08:05] VITALS: BP 99/58; PULSE 81; TEMP 36.6; O2SAT 100
[2025-03-01 08:30] VITALS: BP 111/68; PULSE 70; RESP 16; TEMP 36.2; O2SAT 100
--- NOTE | 2025-03-01 08:45 | W.ANESPOSTOP ---
Postoperative Evaluation Date, Time and Location Date Performed: 03/01/25 Time Performed: 08:43 Patient Location: Day Surgery Unit Vital Signs Most Recent Imported Vital Signs: Most Recent Vital Signs Temp Pulse Resp BP Pulse Ox 36.6 C 81 18 99/58 L 100 03/01/25 08:43 03/01/25 08:43 03/01/25 06:20 03/01/25 08:43 03/01/25 08:43 Assessment Mental Status: Awake (Alert & Oriented to Patient Baseline) Airway and Respiratory Function: Patent airway with normal (patient baseline) respiratory exam Cardiovascular Function: Hemodynamically Stable Hydration Status: Adequately Hydrated Nausea & Vomiting: No Nausea or Vomiting Pain: Pt. Denies Any Pain Peripheral Nerve Block: Patient did not receive a nerve block
== END 2025-03-01 08:40 | disposition home or self-care (01) ==
PROVIDERS: PCP Nurse Practitioner Family; Visit Provider Student in an Organized Health Care Education/Training Program
PROC: 0DJD8ZZ Inspection of Lower Intestinal Tract, Via Natural or Artificial Opening Endoscopic (ICD-10-PCS; CPT 45378; principal; 2025-03-01 07:30)
DX: R19.4 Change in bowel habit (principal); K92.1 Melena; Z87.19 Personal history of other diseases of the digestive system; K64.4 Residual hemorrhoidal skin tags
CPT/HCPCS: 45378; J0131; J2003; J2405; J2704